=== PATIENT | female | born 1965 | race American Indian/Alaskan Native ===

== ENCOUNTER 2019-07-27 10:51 | Day surgery (SDC) | payer OTHER ==
[2019-07-22 15:50] VITALS: BMI 27.4
[2019-07-27 11:22] VITALS: TEMP 98
[2019-07-27] MEDS ORDERED: SODIUM CHLORIDE 0.9% 500 ML 500 ML IV ONE (11:22)
[2019-07-27] MEDS ORDERED: fentaNYL (PF) 50 MCG/ML 2 ML AMP ONE ×2 (11:36→17:21)
[2019-07-27] MEDS ORDERED: BENZOCAINE SPRAY 1 CAN MUCOUS MEM ONE (11:45)
[2019-07-27] MEDS ORDERED: PROPOFOL 10 MG/ML 20 ML VIAL IV ONE (17:21)
[2019-07-27] MEDS ORDERED: LIDOCAINE 1% INJ 10MG/ML (20 ML MDV) ONE (17:21)
[2019-07-27] MEDS ORDERED: MIDAZOLAM 2 MG/2 ML VIAL ONE (17:21)
[2019-07-27] MEDS ORDERED: SODIUM CHLORIDE 0.9% 1,000 ML IV SCH (17:45)
--- NOTE | 2019-07-27 17:50 | P.PCN ---
Date of Procedure: 07/27/19 Preoperative Diagnosis: Left atrial mass Postoperative Diagnosis: The same Procedure(s) Performed: RACHELLE Description of Procedure: INDICATION: This is a 54-year-old female who was diagnosed to have left atrial mass about 5 years ago and is being followed by Dr. JENNA Hernandez. A RACHELLE examination is requested for further evaluation. Patient and family were explained the risks and benefits of procedure CONSENT: Verbal consent was obtained from the patient PROCEDURE: Patient was brought to the lab in a fasting state. Department of anesthesia provided deep anesthesia with IV propofol. A lubricated Omni probe was introduced in the oropharynx and was introduced into the esophagus and stomach. Multiple views were obtained. Patient tolerated the procedure well. Color and pulse revealed a smoker performed. Saline contrast bubble injection was also performed FINDINGS:. The interatrial septum appeared to be intact without any spontaneous shunt. Injection of the saline contrast bubble, did not reveal any evidence of crossing of the bubbles. There is a sessile mass on the left atrial side of the interatrial septum measuring 1.4 x 1 cm. It has a different texture suggestive of possible mass. The possibility of a myxoma to be constricted. The mitral valve appears be normal without any Sigmund regurgitation. The tricuspid valve appeared to be normal. The aortic valve is normal. Left atrial appendage is free of any clot. Pulmonary venous port Appeared to be normal. The aorta is free of any plaque IMPRESSION: #1 sessile mass attached to the interatrial septum on the left atrial side which has a texture could be consistent with myxoma. Measured about 1.4 x 1 cm. #2. Otherwise normal study PLAN:. Continue monitoring. May get surgical opinion regarding possible removal
[2019-07-27 20:01] VITALS: BP 111/57; PULSE 71; RESP 18
== END 2019-07-27 20:45 | disposition home or self-care (01) ==
LOC: CATHCVL 10:51 → 1SOBS 17:43 → CATHCVL 20:45
PROVIDERS: ATTEND Internal Medicine Cardiovascular Disease
DX: D15.1 Benign neoplasm of heart (principal); G89.4 Chronic pain syndrome; F17.210 Nicotine dependence, cigarettes, uncomplicated; Z79.899 Other long term (current) drug therapy; Z88.6 Allergy status to analgesic agent; Z88.8 Allergy status to other drugs, medicaments and biological substances; Z91.041 Radiographic dye allergy status; Z90.710 Acquired absence of both cervix and uterus; Z96.22 Myringotomy tube(s) status; Z91.040 Latex allergy status
CPT/HCPCS: 93312; 93320; 93325; J2250; J2001; J3010; J2704

== ENCOUNTER 2019-07-29 21:41 | Observation (INO) | payer OTHER ==
[2019-07-29] MEDS ORDERED: SODIUM CHLORIDE 0.9% 1,000 ML IV ONE (21:48)
--- NOTE | 2019-07-29 21:53 | ED ---
Chest Pain HPI - General Chief Complaint: Chest Pain Stated Complaint: Chest pain Time Seen by Provider: 07/29/19 21:48 Source: EMS, RN notes reviewed, old records reviewed Mode of arrival: EMS Limitations: no limitations - History of Present Illness Initial Comments: This is a 54-year-old female the ER for evaluation complex recent medical history including multiple heart attacks per patient. While driving to [place] to the of her and then she drove home. Patient also recent RACHELLE which was abnormal results patient had some sort of mass in her heart. Patient has chest pain left-sided chest pain that is very sharp and stabbing currently. She does have recent travel history but no fever cough or congestion no current shortness of breath pain started earlier today about an hour ago and is been getting progressively worse. She took some Valium prior to arrival secondary to some anxiety that she was having. Otherwise pain does not radiate his neck or back. No swelling patient's Pain with friends and began to have some anxiety as well as chest pain on way into town Complaint: chest pain -: days(s) Onset: during rest Pain Location: left chest Severity: moderate Severity scale (1-10): 7 Quality: sharp Consistency: constant Improves With: nothing Worsens With: nothing Context: other (Recent RACHELLE showing some sort of heart tumor) Anginal Symptoms: dyspnea Other Symptoms: palpitations Treatments Prior to Arrival: none - Related Data Home Medications Medication Instructions Recorded Confirmed Cyclobenzaprine [Flexeril] 10 mg PO QID PRN 07/22/19 08/01/19 Diazepam [Valium] 10 mg PO DAILY PRN 07/22/19 08/01/19 HYDROcodone/APAP 10-325MG [[place] 1 tab PO Q4HR PRN 07/22/19 08/01/19 10-325] Medroxyprogesterone Acetate 150 mg IM Q90D 07/30/19 08/01/19 [Depo-Provera] Allergies Allergy/AdvReac Type Severity Reaction Status Date / Time aspirin Allergy Anaphylaxis Verified 08/01/19 23:07 willis Allergy Anaphylaxis Verified 08/01/19 23:07 willis flavor Allergy Anaphylaxis Verified 08/01/19 23:07 Iodinated Contrast Media Allergy Dyspnea Verified 08/01/19 23:07 antidepressants Allergy "blacked Uncoded 08/01/19 23:05 out" Review of Systems ROS Statement: Those systems with pertinent positive or pertinent negative responses have been documented in the HPI. ROS Other: All systems not noted in ROS Statement are negative. EKG Findings - EKG Comments: EKG Findings:: KG shows sinus rhythm rate of 87, WI 1:30, QRS 74, QTc 450 Past Medical History Additional Past Medical History / Comment(s): "I have a mass on my heart." Occ CP. "Having problems with my stomach." History of Any Multi-Drug Resistant Organisms: None Reported Past Surgical History: Ear Surgery, Hysterectomy Additional Past Surgical History / Comment(s): D&C's Past Anesthesia/Blood Transfusion Reactions: No Reported Reaction Additional Past Anesthesia/Blood Transfusion Reaction / Comment(s): no blood transfusion Past Psychological History: Anxiety, Depression Smoking Status: Former smoker Past Alcohol Use History: Rare Past Drug Use History: None Reported - Past Family History Mother Family Medical History: Cancer Father Family Medical History: No Reported History General Exam Limitations: no limitations General appearance: anxious Head exam: Present: atraumatic, normocephalic, normal inspection Eye exam: Present: normal appearance, PERRL, EOMI. Absent: scleral icterus, conjunctival injection, periorbital swelling ENT exam: Present: normal exam, mucous membranes moist Neck exam: Present: normal inspection. Absent: tenderness, meningismus, lymphadenopathy Respiratory exam: Present: normal lung sounds bilaterally. Absent: respiratory distress, wheezes, rales, rhonchi, stridor Cardiovascular Exam: Present: regular rate, normal rhythm, normal heart sounds. Absent: systolic murmur, diastolic murmur, rubs, gallop, clicks GI/Abdominal exam: Present: soft, normal bowel sounds. Absent: distended, tenderness, guarding, rebound, rigid Extremities exam: Present: normal inspection, full ROM, normal capillary refill. Absent: tenderness, pedal edema, joint swelling, calf tenderness Back exam: Present: normal inspection Neurological exam: Present: alert, oriented X3, CN II-XII intact Psychiatric exam: Present: normal affect, normal mood Skin exam: Present: warm, dry, intact, normal color. 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
[2019-07-29] MEDS ORDERED: SODIUM CHLORIDE 0.9% 1,000 ML IV STA (22:00)
[2019-07-29] MEDS ORDERED: MORPHINE SULFATE 4 MG/ML SYRINGE IV STA (22:00)
[2019-07-29 23:21] LABS: Basophils # (A) 0.1 k/uL (0-0.2); Basophils % (A) 1 %; Eosinophils # (A) 0.2 k/uL (0-0.7); Eosinophils % (A) 2 %; HCT 39.5 % (34.0-46.0); HGB 12.6 gm/dL (11.4-16.0); Lymphocytes # (A) 2.7 k/uL (1.0-4.8); Lymphocytes % (A) 29 %; MCH 28.5 pg (25.0-35.0); MCHC 31.9 g/dL (31.0-37.0); MCV 89.6 fL (80.0-100.0); Mean Platelet Volume 6.7; Monocytes # (A) 0.5 k/uL (0-1.0); Monocytes % (A) 5 %; Neutrophils # (A) 5.8 k/uL (1.3-7.7); Neutrophils % (A) 62 %; Platelet Count 306 k/uL (150-450); RBC 4.41 m/uL (3.80-5.40); RDW 13.9 % (11.5-15.5); WBC 9.3 k/uL (3.8-10.6)
[2019-07-29 23:30] LABS: ALT 26 U/L (9-52); AST 19 U/L (14-36); African American GFR (CKD) >90 (>60 ml/min/1.73 sqM); Alkaline Phosphatase 47 U/L (38-126); Anion Gap 11 mmol/L; Blood Urea Nitrogen 14 mg/dL (7-17); Calcium 9.3 mg/dL (8.4-10.2); Carbon Dioxide 21 mmol/L (22-30); Chloride 110 mmol/L (98-107); Glucose 87 mg/dL (74-99); Non-African American GFR(CKD) 79 (>60 ml/min/1.73 sqM); Potassium 3.8 mmol/L (3.5-5.1); Sodium 142 mmol/L (137-145); Total Bilirubin 0.3 mg/dL (0.2-1.3); Total Protein 6.5 g/dL (6.3-8.2)
[2019-07-29 23:34] LABS: D-Dimer 0.31 mg/L FEU (<0.60); Partial Thromboplastin Time 25.5 sec (22.0-30.0); Prothrombin Time 10.4 sec (9.0-12.0)
[2019-07-30] MEDS ORDERED: methylPREDNISolone SOD SUCCI 125 MG/2 ML VIAL IV STA (00:33)
[2019-07-30] MEDS ORDERED: FAMOTIDINE 20 MG/2 ML VIAL IV STA (00:33)
[2019-07-30] MEDS ORDERED: diphenhydrAMINE 50 MG/ML 1 ML VIAL IVP STA (00:33)
[2019-07-30] MEDS ORDERED: NITROGLYCERIN SL TABS 0.4 MG TAB SUBLINGUAL PRN (00:49)
[2019-07-30] MEDS ORDERED: MORPHINE SULFATE 4 MG/ML SYRINGE IV PRN (00:49)
[2019-07-30] MEDS ORDERED: MORPHINE SULFATE 4 MG/ML SYRINGE IVP PRN (00:49)
[2019-07-30] MEDS ORDERED: ONDANSETRON 4 MG/2 ML VIAL IVP STA (01:07)
--- NOTE | 2019-07-30 01:52 | CT ---
EXAMINATION TYPE: CT angio chest DATE OF EXAM: 07/30/2019 1:26 AM COMPARISON: None HISTORY: chest pain CT DLP: 296 mGycm Automated exposure control for dose reduction was used. CONTRAST: CTA scan of the thorax is performed with IV Contrast, patient injected with 65 mL of Isovue 370, pulm onary embolism protocol. . There are 3-D post processed images. FINDINGS: Heart size is normal. There is no pericardial effusion. There is no mediastinal adenopathy. There are no hilar masses. Thoracic aorta is intact without sign of aneurysm or dissection. There is normal contrast opacification of the pulmonary arteries. There are no filling defects. There is mild subsegmental atelectasis at the posterior lung bases. There is no evidence of a pulmona ry mass. Lungs are clear of consolidation. There is no pleural effusion. There is mild thoracic dextr oscoliosis. There is mild spondylotic changes in the thoracic spine. IMPRESSION: NO EVIDENCE OF PULMONARY EMBOLISM. NEGATIVE EXAM.
[2019-07-30 08:38] VITALS: BP 115/68; PULSE 72; RESP 18; TEMP 98.2
--- NOTE | 2019-07-30 10:04 | P.CRDCN ---
History of Present Illness History of present illness: This is a pleasant 54-year-old female past medical history for left atrial mass suggestive of myxoma and former nicotine dependence. She follows in the office with Dr. Hernandez. She recently established with him after 10 years and underwent evaluation of the myxoma. She had a RACHELLE on July 27 revealing the intra-atrial septum intact, sensory no mass in the left atrial side of the interatrial septum measuring 1.4 x 1 cm suggestive of possible mass possible myxoma, mitral valve normal without any regurgitation, tricuspid valve normal, aortic valve normal, left atrial appendage free of any clot and normal LV function. She presented to the hospital yesterday complaining of significant chest discomfort in the left precordial region with radiation to the left arm, into the left hand and mildly in the right shoulder. Associated with shortness of breath, nausea and she vomited once yesterday after receiving IV contrast for CT. Upon entering the room she is clutching her chest and crying. She states her chest hurts to touch. The pain is reproducible on gentle palpation. She denies associated dizziness, palpitations or diaphoresis currently. She is behaving quite aggressively and swearing at staff. She is quite concerned about her pain going untreated. She did receive IV morphine at 2345, 11 and 0254. Of noted, the patient did lose her 4 weeks ago today and is having a difficult time dealing with it. EKG reveals sinus mechanism, poor R-wave progression and nonspecific ST abnormalities. CT chest negative for pulmonary embolism, no evidence of pulmonary mass, lungs are clear of consolidation and intact thoracic aorta. Laboratory data reviewed, WBC 9.3, hemoglobin 12.6, platelets 306, d-dimer 0.31, sodium 142, potassium 3.8, creatinine 0.85, magnesium 2.0, cardiac enzymes negative 2, proBNP 98. She currently takes no daily cardiac medications. At the time of my exam: CONSTITUTIONAL: Denies fever. Denies chills. EYES: Denies blurred vision. Denies vision changes. Denies eye pain. EARS, NOSE, MOUTH & THROAT: Denies headache. Denies sore throat. Denies ear pain. CARDIOVASCULAR: Complains of chest pain. Denies shortness of breath. Denies orthopnea. Denies PND. Denies palpitations. RESPIRATORY: Denies cough. GASTROINTESTINAL: Denies abdominal pain. Denies diarrhea. Denies constipation. Denies nausea. Denies vomiting. MUSCULOSKELETAL: Denies myalgias. INTEGUMENTARY: Denies pruitis. Denies rash. NEUROLOGIC: Denies numbness. Denies tingling. Denies weakness. PSYCHIATRIC: Denies anxiety. Denies depression. ENDOCRINE: Denies fatigue. Denies weight change. Denies polydipsia. Denies polyurina. GENITOURINARY: Denies burning, hematuria or urgency with micturation. HEMATOLOGIC: Denies history of anemia. Denies bleeding. Blood pressure 115/68 heart rate 72 afebrile maintaining oxygen saturation on room air GENERAL: This is a 54-year-old female in no apparent distress at the time of my examination. Tearful. HEENT: Head is atraumatic, normocephalic. Pupils are equal, round. Sclerae anicteric. Conjunctivae are clear. Mucous membranes of the mouth are moist. Neck is supple. There is no jugular venous distention. No carotid bruit is heard. LUNGS: Clear to auscultation no wheezes, rales or rhonchi. Significant chest wall tenderness is noted on palpation and with deep breathing. HEART: Regular rate and rhythm without murmurs, rubs or gallops. S1 and S2 heard. ABDOMEN: Soft, nontender. Bowel sounds are heard. No organomegaly noted. EXTREMITIES: No evidence of peripheral edema and no calf tenderness noted. VASCULAR: Radial and dorsalis pedis pulses palpated, no evidence of clubbing. NEUROLOGIC: Patient is awake, alert and oriented x3. ASSESSMENT Chest pain, atypical for angina. Pleuritic and reproducible on palpitation. Unlikely to be cardiac etiology. 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 In the process of undergoing outpatient work-up with recommendation to see CT Surgery as an outpatient. History of anxiety and recent loss of a loved one Former nicotine dependence PLAN Pain is atypical to be from a cardiac etiology or myxoma. Pt is tearful and behaving quite aggressively regarding have her "mass removed today" explained the process to her and advised that she continues her outpatient work-up. Follow up with Dr. Hernandez upon discharge and again advise outpatient follow up with CT surgery. Thank you kindly for this consultation. Nurse Practitioner note has been reviewed, I agree with a documented findings and plan of care. Patient was seen and examined. Past Medical History Additional Past Medical History / Comment(s): "I have a mass on my heart." Occ CP. "Having problems with my stomach." History of Any Multi-Drug Resistant Organisms: None Reported Past Surgical History: Ear Surgery, Hysterectomy Additional Past Surgical History / Comment(s): D&C's Past Anesthesia/Blood Transfusion Reactions: No Reported Reaction Additional Past Anesthesia/Blood Transfusion Reaction / Comment(s): no blood transfusion Smoking Status: Former smoker - Past Family History Mother Family Medical History: Cancer Medications and Allergies Home Medications Medication Instructions Recorded Confirmed Type Cyclobenzaprine [Flexeril] 10 mg PO QID PRN 07/22/19 07/29/19 History Diazepam [Valium] 10 mg PO DAILY PRN 07/22/19 07/29/19 History HYDROcodone/APAP 10-325MG [[place] 1 tab PO Q4HR PRN 07/22/19 07/29/19 History 10-325] Medroxyprogesterone Acetate 150 mg IM Q90D 07/30/19 07/30/19 History [Depo-Provera] Allergies Allergy/AdvReac Type Severity Reaction Status Date / Time aspirin Allergy Anaphylaxis Verified 07/30/19 02:40 willis Allergy Anaphylaxis Verified 07/30/19 02:40 willis flavor Allergy Anaphylaxis Verified 07/30/19 02:40 Iodinated Contrast Media Allergy Dyspnea Verified 07/30/19 02:40 antidepressants Allergy "blacked Uncoded 07/30/19 02:40 out" Physical Exam Vitals: Vital Signs Temp Pulse Pulse Resp BP BP Pulse Ox 07/30/19 03:02 20 07/30/19 03:00 97.9 F 69 18 135/81 100 07/30/19 02:18 98.6 F 71 20 121/86 97 07/29/19 21:43 98.9 F 90 18 122/67 98 Intake and Output 07/29/19 07/30/19 07/30/19 22:59 06:59 14:59 Other: # Voids 1 Weight 71.214 kg Results 07/29/19 22:25 07/29/19 22:25 Cardiac Enzymes 07/29/19 07/29/19 07/30/19 Range/Units 22:25 22:25 05:36 AST 19 (14-36) U/L Troponin I <0.012 <0.012 (0.000-0.034) ng/mL Coagulation 07/29/19 Range/Units 22:25 PT 10.4 (9.0-12.0) sec APTT 25.5 (22.0-30.0) sec CBC 07/29/19 Range/Units 22:25 WBC 9.3 (3.8-10.6) k/uL RBC 4.41 (3.80-5.40) m/uL Hgb 12.6 (11.4-16.0) gm/dL Hct 39.5 (34.0-46.0) % Plt Count 306 (150-450) k/uL Comprehensive Metabolic Panel 07/29/19 Range/Units 22:25 Sodium 142 (137-145) mmol/L Potassium 3.8 (3.5-5.1) mmol/L Chloride 110 H (98-107) mmol/L Carbon Dioxide 21 L (22-30) mmol/L BUN 14 (7-17) mg/dL Creatinine 0.85 (0.52-1.04) mg/dL Glucose 87 (74-99) mg/dL Calcium 9.3 (8.4-10.2) mg/dL AST 19 (14-36) U/L ALT 26 (9-52) U/L Alkaline Phosphatase 47 (38-126) U/L Total Protein 6.5 (6.3-8.2) g/dL Albumin 4.0 (3.5-5.0) g/dL Current Medications Generic Name Dose Route Start Last Admin Trade Name Freq PRN Reason Stop Dose Admin Morphine Sulfate 4 mg 07/30/19 00:49 07/30/19 02:54 Morphine Sulfate (Inj) IV 4 mg Q4HR PRN Administration Chest Pain Morphine Sulfate 4 mg 07/30/19 00:49 07/30/19 01:11 Morphine Sulfate (Inj) IVP 4 mg ONCE PRN Administration Pain Nitroglycerin 0.4 mg 07/30/19 00:49 Nitrostat SUBLINGUAL Q5M PRN Chest Pain Intake and Output 07/29/19 07/30/19 07/30/19 22:59 06:59 14:59 Other: # Voids 1 Weight 71.214 kg 07/29/19 22:25 07/29/19 22:25
--- NOTE | 2019-07-30 10:56 | XR ---
EXAMINATION TYPE: XR chest 2V DATE OF EXAM: 07/30/2019 COMPARISON: CTA chest earlier today HISTORY: Pre open cardiac surgery. TECHNIQUE: Frontal and lateral views of the chest are obtained. FINDINGS: Overlying EKG leads are present. There is no focal air space opacity, pleural effusion, or pneumothorax seen. The cardiac silhouette size is within normal limits. The osseous structures are intact. IMPRESSION: No acute process.
[2019-07-30 11:31] LABS: Basophils % (A) 0 %; Eosinophils % (A) 0 %; HCT 44.7 % (34.0-46.0); Lymphocytes # (A) 1.2 k/uL (1.0-4.8); Lymphocytes % (A) 14 %; MCH 28.2 pg (25.0-35.0); MCHC 31.3 g/dL (31.0-37.0); MCV 90.1 fL (80.0-100.0); Mean Platelet Volume 6.7; Monocytes # (A) 0.1 k/uL (0-1.0); Monocytes % (A) 1 %; Neutrophils # (A) 7.2 k/uL (1.3-7.7); Neutrophils % (A) 84 %; Platelet Count 366 k/uL (150-450); RBC 4.95 m/uL (3.80-5.40); WBC 8.5 k/uL (3.8-10.6)
[2019-07-30 11:42] LABS: ALT 34 U/L (9-52); AST 17 U/L (14-36); African American GFR (CKD) >90 (>60 ml/min/1.73 sqM); Albumin 4.5 g/dL (3.5-5.0); Alkaline Phosphatase 53 U/L (38-126); Anion Gap 12 mmol/L; Blood Urea Nitrogen 11 mg/dL (7-17); Carbon Dioxide 19 mmol/L (22-30); Chloride 110 mmol/L (98-107); Cholesterol 198 mg/dL (<200); Glucose 148 mg/dL (74-99); HDL Cholesterol 40 mg/dL (40-60); LDL Cholesterol,Calculated 145 mg/dL (0-99); Non-African American GFR(CKD) >90 (>60 ml/min/1.73 sqM); Potassium 4.1 mmol/L (3.5-5.1); Sodium 141 mmol/L (137-145); Total Bilirubin 0.5 mg/dL (0.2-1.3); Total Protein 7.2 g/dL (6.3-8.2); Triglycerides 64 mg/dL (<150)
[2019-07-30 12:23] LABS: Appearance,Urine Clear (Clear); Bilirubin,Urine Negative (Negative); Blood,Urine Small (Negative); Color,Urine Yellow; Glucose,Urine (UA) Negative (Negative); Ketones,Urine Negative (Negative); Leukocyte Esterase,Urine Negative (Negative); Mucus,Urine Rare /hpf; Nitrite,Urine Negative (Negative); Protein,Urine Trace (Negative); RBC,Urine 8 /hpf (0-5); Specific Gravity,Urine 1.033 (1.001-1.035); Squamous Epithelial Cell,Urine 1 /hpf (0-4); Urobilinogen,Urine <2.0 mg/dL (<2.0)
--- NOTE | 2019-07-30 13:18 | P.GSCN ---
History of Present Illness Consult date: 07/30/19 Reason for Consult: Left atrial septal mass measuring 1.4 x 1.0 cm suggestive of possible myxoma. Requesting physician: Moi Hernandez History of present illness: This is a 54-year-old female patient who is followed by Dr. Tommy Vo on an outpatient basis. 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 The patient also reports that she was diagnosed with a myocardial infarction 6 weeks ago in [place] with no records available. The patient also experienced a recent loss of her 16 weeks ago and reports today is the 16 week anniversary of him passing. She states that she started developing substernal chest pain last evening while camping with family members. The chest pain started at rest and it radiated to her left arm with numbness and tingling, the chest pain was also associated with shortness of breath, nausea and some dizziness. Subsequently a family member called EMS. She denies any recent fevers, chills, presyncope, syncope, or palpitations. The patient also has a history of following with Dr. JENNA Hernandez from [facility], although she recently reestablished with him after not seeing him for around 10 years. Due to the patient's history of left atrial myxoma a 2-D echocardiogram was completed at Dr. Hernandez's office on 06/24/2019 which demonstrated a normal left ventricular size and function with an ejection fraction of 55%, intra-atrial septum with a lipomatous change or myxoma. She was recommended to undergo a transesophageal echocardiogram which was completed on 07/27/2019 and demonstrated a sessile mass attached to the intra-atrial septum on the left atrial side which has a texture which could be consistent with a myxoma and measured about 1.4 x 1 cm. On presentation to the emergency department a 12-lead EKG was completed which revealed normal sinus rhythm with a heart rate of 87, with poor R-wave progression and nonspecific ST-T abnormalities. For further evaluation a CTA of the chest was completed which was negative for pulmonary embolism and showed no evidence of pulmonary mass. Her laboratory results showed a WBC count of 9.3, hemoglobin 12.6, hematocrit 39.5, platelets 306, INR 1.0, BUN 14, creatinine 0.85, blood glucose 87, proBNP 98 and her serial troponins were negative. Currently she is complaining of continued pain, is quite anxious, tearing and agitated. She is also swearing and insisting she have surgery today to remove this mass in her heart. Subsequently due to the patient's history of left atrial septal mass a consult was placed to Dr. Felipa Rodriguez for further evaluation and treatment recommendations. Review of Systems 14 point review of systems was completed and was negative except as mentioned in the HPI. Past Medical History Past Medical History: Chest Pain / Angina Additional Past Medical History / Comment(s): "I have a mass on my heart." "Having problems with my stomach." History of Any Multi-Drug Resistant Organisms: None Reported Past Surgical History: Ear Surgery, Hysterectomy, Tubal Ligation Additional Past Surgical History / Comment(s): D&C's Past Anesthesia/Blood Transfusion Reactions: No Reported Reaction Additional Past Anesthesia/Blood Transfusion Reaction / Comm: no blood transfusion Past Psychological History: Anxiety Smoking Status: Former smoker (Quit smoking in the ) Past Alcohol Use History: Rare Past Drug Use History: None Reported - Past Family History Mother Family Medical History: Cancer Father Family Medical History: No Reported History Medications and Allergies Home Medications Medication Instructions Recorded Confirmed Type Cyclobenzaprine [Flexeril] 10 mg PO QID PRN 07/22/19 07/29/19 History Diazepam [Valium] 10 mg PO DAILY PRN 07/22/19 07/29/19 History HYDROcodone/APAP 10-325MG [[place] 1 tab PO Q4HR PRN 07/22/19 07/29/19 History 10-325] Medroxyprogesterone Acetate 150 mg IM Q90D 07/30/19 07/30/19 History [Depo-Provera] Allergies Allergy/AdvReac Type Severity Reaction Status Date / Time aspirin Allergy Anaphylaxis Verified 07/30/19 02:40 willis Allergy Anaphylaxis Verified 07/30/19 02:40 willis flavor Allergy Anaphylaxis Verified 07/30/19 02:40 Iodinated Contrast Media Allergy Dyspnea Verified 07/30/19 02:40 antidepressants Allergy "blacked Uncoded 07/30/19 02:40 out" Surgical - Exam Vital Signs Temp Pulse Resp BP Pulse Ox 98.9 F 90 18 122/67 98 07/29/19 21:43 07/29/19 21:43 07/29/19 21:43 07/29/19 21:43 07/29/19 21:43 - General well developed, well nourished, no distress, moderate pain (To her left chest) - Eyes PERRL, normal ocular movement - ENT normal pinna, normal nares, normal mucosa, no hearing loss, no congestion, poor residential - Neck Neck is supple, no lymphadenopathy. no masses, no bruits, trachea midline, no venous distension - Respiratory Lung sounds are essentially clear throughout. No wheezes, rhonchi or crackles appreciated. Respirations are symmetrical and nonlabored. - Cardiovascular Regular rhythm and rate. S1 and S2 present, negative for S3, gallop or murmur. No edema present. Peripheral pulses palpable. - Abdomen Abdomen is soft, nontender and nondistended. Active bowel sounds present all 4 abdominal quadrants. No organomegaly. No guarding or rigidity. - Genitourinary Deferred - Rectum Deferred - Integumentary no rash, no growths, no abnormal pigmentation - Neurologic normal coordination, normal sensation - Musculoskeletal normal gait, normal posture - Psychiatric Anxious and agitated. oriented to time, oriented to person, oriented to place, speech is normal, memory intact Results - Labs 07/30/19 11:05 07/30/19 11:05 Abnormal Lab Results - Last 24 Hours (Table) 07/29/19 Range/Units 22:25 Chloride 110 H (98-107) mmol/L Carbon Dioxide 21 L (22-30) mmol/L Diabetes panel 07/29/19 Range/Units 22:25 Sodium 142 (137-145) mmol/L Potassium 3.8 (3.5-5.1) mmol/L Chloride 110 H (98-107) mmol/L Carbon Dioxide 21 L (22-30) mmol/L BUN 14 (7-17) mg/dL Creatinine 0.85 (0.52-1.04) mg/dL Glucose 87 (74-99) mg/dL Calcium 9.3 (8.4-10.2) mg/dL AST 19 (14-36) U/L ALT 26 (9-52) U/L Alkaline Phosphatase 47 (38-126) U/L Total Protein 6.5 (6.3-8.2) g/dL Albumin 4.0 (3.5-5.0) g/dL Calcium panel 07/29/19 Range/Units 22:25 Calcium 9.3 (8.4-10.2) mg/dL Albumin 4.0 (3.5-5.0) g/dL Pituitary panel 07/29/19 Range/Units 22:25 Sodium 142 (137-145) mmol/L Potassium 3.8 (3.5-5.1) mmol/L Chloride 110 H (98-107) mmol/L Carbon Dioxide 21 L (22-30) mmol/L BUN 14 (7-17) mg/dL Creatinine 0.85 (0.52-1.04) mg/dL Glucose 87 (74-99) mg/dL Calcium 9.3 (8.4-10.2) mg/dL Adrenal panel 07/29/19 Range/Units 22:25 Sodium 142 (137-145) mmol/L Potassium 3.8 (3.5-5.1) mmol/L Chloride 110 H (98-107) mmol/L Carbon Dioxide 21 L (22-30) mmol/L BUN 14 (7-17) mg/dL Creatinine 0.85 (0.52-1.04) mg/dL Glucose 87 (74-99) mg/dL Calcium 9.3 (8.4-10.2) mg/dL Total Bilirubin 0.3 (0.2-1.3) mg/dL AST 19 (14-36) U/L ALT 26 (9-52) U/L Alkaline Phosphatase 47 (38-126) U/L Total Protein 6.5 (6.3-8.2) g/dL Albumin 4.0 (3.5-5.0) g/dL - Imaging Chest x-ray: image reviewed CT scan - chest: report reviewed, image reviewed EKG: image reviewed Assessment and Plan Assessment: 1. Chest pain, atypical for angina 2. History of left atrial mass measuring 1.4 x 1 cm on transesophageal echocardiogram 3. History of anxiety 4. Remote history of nicotine dependence 5. Chronic pain syndrome 6. History of migraine headaches 7. History of back spasms Plan: The patient was seen and examined. Her chart and diagnostics were reviewed. The case was discussed with Dr. Felipa Rodriguez from cardiothoracic surgery. Her pain is atypical from a cardiac etiology or myxoma. If the patient was to be considered a candidate for open heart surgery for her left atrial mass she will likely need a cardiac catheterization preoperatively. This has been discussed with the patient and Gillian Batres nurse practitioner for cardiology. Preoperat amairani testing has been initiated. Optimize the patient with medical management, the patient has a contraindication to aspirin as she has an anaphylactic reaction. Optimize with medical management. Cardiology recommendations per Dr. JENNA Hernandez. Medical and comorbidities management per primary care service. More recommendations to follow once the patient's preoperative testing has been obtained and her cardiac catheterization results have been obtained. Once the patient has had a cardiac catheterization she can follow-up with Dr. Rodriguez in the office on an outpatient basis Thank you Dr. Hernandez for this consult and we will look for to work through in the care of your patient. Time with Patient: Greater than 30
--- NOTE | 2019-07-30 13:44 | US ---
EXAMINATION TYPE: US carotid duplex BILAT DATE OF EXAM: 07/30/2019 COMPARISON: NONE CLINICAL HISTORY: Pre-Op Cardiac Surgery,Ankle Brachial Index (PADMINI) . EXAM MEASUREMENTS: RIGHT: Peak Systolic Velocity (PSV) cm/sec ----- Right CCA: 78.4 ----- Right ICA: 72.3 ----- Right ECA: 80.9 ICA/CCA ratio: 0.9 RIGHT: End Diastole cm/sec ----- Right CCA: 15.0 ----- Right ICA: 14.1 ----- Right ECA: 12.8 LEFT: Peak Systolic Velocity (PSV) cm/sec ----- Left CCA: 80.1 ----- Left ICA: 64.8 ----- Left ECA: 91.2 ICA/CCA ratio: 0.8 LEFT: End Diastole cm/sec ----- Left CCA: 18.0 ----- Left ICA: 12.9 ----- Left ECA: 12.1 VERTEBRALS (direction of flow): Right Vertebral: Antegrade Left Vertebral: Antegrade Rhythm: Normal no significant velocity elevations. IMPRESSION: Mild degree of grayscale atheromatous plaquing with no sonographically evident hemodyn amically significant stenosis within either visualized carotid arterial system. Criteria for Assigning % of Stenosis / Diameter reduction (Estimation based on the indirect measurements of the internal carotid artery velocities (ICA PSV). 1. Normal (no stenosis)=ICA PSV < 125 cm/s: ratio < 2.0: ICA EDV<40 cm/s. 2. Less than 50% stenosis=ICA PSV < 125 cm/s: ratio < 2.0: ICA EDV<40 cm/s. 3. 50 to 69% stenosis=ICA PSV of 125 to 230 cm/s: ration 2.0 ? 4.0: ICA EDV 40-100 cm/s. 4. Greater than 70% stenosis to near occlusion= ICA PSV > 230 cm/s: ratio > 4.0: ICA EDV > 100 cm/s. 5. Near occlusion= ICA PSV velocities may be low or undetectable: variable ratio and ICA EDV. 6. Total occlusion=unable to detect flow.
[2019-07-30 16:47] LABS: Hepatitis A Antibody IgM Non-Reactive (Non-Reactive); Hepatitis B Core IgM Non-Reactive (Non-Reactive); Hepatitis B Surface Antigen Non-Reactive (Non-Reactive); Hepatitis C IgG Antibody Non-Reactive (Non-Reactive)
[2019-07-30 18:19] LABS: Hemoglobin A1C 5.3 % (4.0-6.0)
--- NOTE | 2019-08-04 11:05 | P.VSCSTY ---
Greater Saphenous Vein Mapping This is bilateral lower extremity greater saphenous vein mapping. Date of service: 07/30/2019 Vein quality and ultrasound appearance: No endoluminal thrombus or wall changes are seen.. Vein size groin right : 6.5 x 4.4 groin left: 5.8 x 5.3 High thigh right: 4.3 x 3.3 high thigh left: 4.2 x 3.8 Mid thigh right: 2.1 x 2.0 mid thigh left: 4.0 x 2.6 Above-knee right: 3.1 x 2.2 above- knee left: 2.8 x 2.8 Below knee right: 2.9 x 2.3 below-knee left: 1.7 x 1.9 Mid calf right: 1.5 x 1.5 mid calf left: 2.0 x 1.4 Ankle right: 1.2 x 1.0 ankle left: 1.3 x 1.1. Impression: There appears to be usable greater saphenous vein in both eyes, especially the left [id number]. Both sides below the knee are bit small for use as conduit..
--- NOTE | 2019-08-05 21:15 | P.HPIM ---
History of Present Illness H&P Date: 07/30/19 Chief Complaint: Chest pain History of present complaint: This is a 54-year-old patient who follows with Dr. Goetz. This is a patient has a history of left atrial mass suggestive of myxoma. She follows with Dr. JENNA Hernandez the pipe straightener. She followed up for 10 years and T July 27 found her antral antral septum to be intact. There was some suggestion of the myxoma. Telemetry function reported to be normal. Patient presents 1 day history of sharp pain in the left infraclavicular area and also left arm with some numbness and tingling. Presentation was intermittent and worse with bowel movement. It was also tender to touch below the left clavicle. Patient has recently lost her . Days ago and very sensitive about things around her. She was admitted to rule out a cardiac cause. Review of systems: GEN.: None EYES: None HEENT: None NECK: None RESPIRATORY: None CARDIOVASCULAR: As above GASTROINTESTINAL: None GENITOURINARY: None MUSCULOSKELETAL: As above LYMPHATICS: None HEMATOLOGICAL: None PSYCHIATRY: Anxious NEUROLOGICAL: None Social history: Lives alone. Was a homemaker. No smoking or alcohol. Family history: Cancer Physical examination: VITAL SIGNS: 98.9, 90, 18, 122/67, 98% room air GENERAL: BMI 26.9, sitting up slightly anxious. EYES: Pupils equal. Conjunctiva normal. HEENT: External appearance of nose and ears normal, oral cavity grossly normal. NECK: JVD not raised; masses not palpable. HEART: First and second heart sounds are normal; no edema. LUNGS: Respiratory rate normal; clear to auscultation. ABDOMEN: Soft, nontender, liver spleen not palpable, no masses palpable. PSYCH: Alert and oriented x3; mood and affect normal. NEUROLOGICAL: Cranial nerves grossly intact; no facial asymmetry, power and sensation grossly intact. LYMPHATICS: No lymph nodes palpable in the axilla and neck MUSCULAR schedule: Slight tenderness below the left clavicle. Saw the patient is reproducible INVESTIGATIONS, reviewed in the clinical context: White count 9.3 hemoglobin 12.6 potassium 3.8 creatinine 0.85 Troponin I 2 negative TSH 0.397 free T4 1 0.0 EKG tracing personally reviewed by me-sinus rhythm, poor R-wave progression Chest x-ray film personally reviewed by me-hyperinflated lung ortiz Assessment: -Left anterior chest wall pain reproducible, possibly musculoskeletal -Left atrial mass likely myxoma for further outpatient workup by cardiothoracic surgery -Anxiety with bereavement from recent loss of her Plan: Cardiology was consulted. They did consult cardio thoracic surgery. Some preop workup a bit also. Patient can expedite surgery. Patient was reassured.- Past Medical History Additional Past Medical History / Comment(s): "I have a mass on my heart." Occ CP. "Having problems with my stomach." History of Any Multi-Drug Resistant Organisms: None Reported Past Surgical History: Ear Surgery, Hysterectomy Additional Past Surgical History / Comment(s): D&C's Past Anesthesia/Blood Transfusion Reactions: No Reported Reaction Additional Past Anesthesia/Blood Transfusion Reaction / Comment(s): no blood transfusion Smoking Status: Former smoker - Past Family History Mother Family Medical History: Cancer Father Family Medical History: No Reported History Medications and Allergies Home Medications Medication Instructions Recorded Confirmed Type Cyclobenzaprine [Flexeril] 10 mg PO QID PRN 07/22/19 08/01/19 History Diazepam [Valium] 10 mg PO DAILY PRN 07/22/19 08/01/19 History HYDROcodone/APAP 10-325MG [[place] 1 tab PO Q4HR PRN 07/22/19 08/01/19 History 10-325] Medroxyprogesterone Acetate 150 mg IM Q90D 07/30/19 08/01/19 History [Depo-Provera] Allergies Allergy/AdvReac Type Severity Reaction Status Date / Time aspirin Allergy Anaphylaxis Verified 08/01/19 23:07 willis Allergy Anaphylaxis Verified 08/01/19 23:07 willis flavor Allergy Anaphylaxis Verified 08/01/19 23:07 Iodinated Contrast Media Allergy Dyspnea Verified 08/01/19 23:07 antidepressants Allergy "blacked Uncoded 08/01/19 23:05 out" Physical Exam Vitals: Vital Signs Temp Pulse Pulse Resp BP BP Pulse Ox 07/30/19 08:00 98.2 F 72 18 115/68 98 07/30/19 03:02 20 07/30/19 03:00 97.9 F 69 18 135/81 100 07/30/19 02:18 98.6 F 71 20 121/86 97 07/29/19 21:43 98.9 F 90 18 122/67 98 Intake and Output 07/29/19 07/30/19 07/30/19 22:59 06:59 14:59 Other: # Voids 1 Weight 71.214 kg Results CBC & Chem 7: 07/30/19 11:05 07/30/19 11:05 Labs: Abnormal Lab Results - Last 24 Hours (Table) 07/29/19 07/30/19 Range/Units 22:25 11:05 Chloride 110 H 110 H (98-107) mmol/L Carbon Dioxide 21 L 19 L (22-30) mmol/L Glucose 148 H (74-99) mg/dL LDL Cholesterol, Calc 145 H (0-99) mg/dL TSH 0.397 L (0.465-4.680) mIU/L Thrombosis Risk Factor Assmnt - Choose All That Apply Each Factor Represents 1 point: Age 41-60 years, Obesity (BMI >25) Thrombosis Risk Factor Assessment Total Risk Factor Score: 2 Thrombosis Risk Factor Assessment Level: Low Risk
--- NOTE | 2019-08-05 21:18 | P.DS ---
Providers Date of admission: 07/30/19 00:49 Expected date of discharge: 08/05/19 Attending physician: Delvis Bentley Consults: 07/30/19 00:49 Consult Physician Urgent Consulting Provider: Amrita Tyler Consult Reason/Comments: cp Do you want consulting provider notified?: Yes 07/30/19 08:49 Consult Physician Routine Consulting Provider: Felipa Rodriguez Consult Reason/Comments: myxoma Do you want consulting provider notified?: Yes Primary care physician: Tommy Vo [facility] Course: Chief Complaint: Chest pain Hospital course: This is a 54-year-old patient who follows with Dr. Goetz. This is a patient has a history of left atrial mass suggestive of myxoma. She follows with Dr. JENNA Hernandez the functional architect. She followed up for 10 years and T July 27 found her antral antral septum to be intact. There was some suggestion of the myxoma. Telemetry function reported to be normal. Patient presents 1 day history of sharp pain in the left infraclavicular area and also left arm with some numbness and tingling. Presentation was intermittent and worse with bowel movement. It was also tender to touch below the left clavicle. Patient has recently lost her . Days ago and very sensitive about things around her. She was admitted to rule out a cardiac cause. Patient is felt to musculoskeletal pain. Patient seen by Dr. Rodriguez from cardiothoracic surgery so workup could be expedited for the atrial mass. Consultation: Dr. Gaxiola from cardiology Dr. Rodriguez from cardiothoracic surgery Physical examination: VITAL SIGNS: 98.2, 72, 18, 11 5/68, 98% room air GENERAL: Sitting up, anxious EYES: Pupils equal. Conjunctiva normal. HEENT: External appearance of nose and ears normal, oral cavity grossly normal. NECK: JVD not raised; masses not palpable. HEART: First and second heart sounds are normal; no edema. LUNGS: Respiratory rate normal; clear to auscultation. ABDOMEN: Soft, nontender, liver spleen not palpable, no masses palpable. PSYCH: Alert and oriented x3; mood and affect normal. MUSCULAR schedule: Slight tenderness below the left clavicle. 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 for further outpatient workup by cardiothoracic surgery -Anxiety with bereavement from recent loss of her Disposition: Home Patient Condition at Discharge: Undetermined Plan - Discharge Summary New Discharge Prescriptions: Continue Cyclobenzaprine [Flexeril] 10 mg PO QID PRN PRN Reason: back spasms HYDROcodone/APAP 10-325MG [Crockett 10-325] 1 tab PO Q4HR PRN PRN Reason: Pain Diazepam [Valium] 10 mg PO DAILY PRN PRN Reason: Anxiety Medroxyprogesterone Acetate [Depo-Provera] 150 mg IM Q90D Discharge Medication List Cyclobenzaprine [Flexeril] 10 mg PO QID PRN 07/22/19 [History] Diazepam [Valium] 10 mg PO DAILY PRN 07/22/19 [History] HYDROcodone/APAP 10-325MG [Crockett 10-325] 1 tab PO Q4HR PRN 07/22/19 [History] Medroxyprogesterone Acetate [Depo-Provera] 150 mg IM Q90D 07/30/19 [History] Follow up Appointment(s)/Referral(s): Moi Hernandez MD [STAFF PHYSICIAN] - 08/05/19 10:45 am Tommy Vo MD [Primary Care Provider] - 1-2 days Felipa Rodriguez MD [STAFF PHYSICIAN] - 08/13/19 11:00 am
== END 2019-07-30 12:50 ==
LOC: EC 21:41 → 1SOBS 07-30 00:49
PROVIDERS: ADMIT Hospitalist; ATTEND Hospitalist
DX: R07.89 Other chest pain (principal); R93.1 Abnormal findings on diagnostic imaging of heart and coronary circulation; G89.4 Chronic pain syndrome; F41.9 Anxiety disorder, unspecified; F41.0 Panic disorder [episodic paroxysmal anxiety]; G43.909 Migraine, unspecified, not intractable, without status migrainosus; R20.0 Anesthesia of skin; R20.2 Paresthesia of skin; Z63.4 Disappearance and death of family member; E66.9 Obesity, unspecified; Z68.26 Body mass index [BMI] 26.0-26.9, adult; R11.2 Nausea with vomiting, unspecified; R06.02 Shortness of breath; I25.2 Old myocardial infarction; R00.2 Palpitations; Z79.891 Long term (current) use of opiate analgesic; Z79.899 Other long term (current) drug therapy; Z88.6 Allergy status to analgesic agent; Z91.041 Radiographic dye allergy status; Z88.8 Allergy status to other drugs, medicaments and biological substances; Z91.018 Allergy to other foods; Z87.891 Personal history of nicotine dependence; Z80.9 Family history of malignant neoplasm, unspecified
CPT/HCPCS: 93005 ×2; 96376 ×2; 96361; 96374; 96375; 99285; 36415; 85379; 84439; 83880; 80061; 80053 ×2; 80074; 84443; 83690; 83735 ×2; 84484 ×2; 85025 ×2; 85610; 85730; 81001; 87070; 83036; 71046; 93970; 93880; 71275; G0378; J2270 ×2; J1200; J2930; J2405; Q9967

== ENCOUNTER 2019-08-01 22:48 | Emergency (ER) | payer OTHER ==
--- NOTE | 2019-08-01 23:30 | XR ---
EXAMINATION TYPE: XR chest 2V DATE OF EXAM: 08/01/2019 COMPARISON: 07/30/2019 HISTORY: Chest pain TECHNIQUE: Frontal and lateral views of the chest are obtained. FINDINGS: Heart and mediastinum are normal. Lungs are clear of consolidation. There are no hilar mas ses. Costophrenic angles are clear. There are chest leads. Bony thorax is intact. IMPRESSION: No active cardiopulmonary disease. No change.
[2019-08-01 23:44] LABS: Basophils # (A) 0.1 k/uL (0-0.2); Basophils % (A) 1 %; Eosinophils # (A) 0.2 k/uL (0-0.7); Eosinophils % (A) 2 %; HCT 44.1 % (34.0-46.0); HGB 14.4 gm/dL (11.4-16.0); Lymphocytes # (A) 3.8 k/uL (1.0-4.8); Lymphocytes % (A) 32 %; MCH 29.4 pg (25.0-35.0); MCHC 32.6 g/dL (31.0-37.0); MCV 90.1 fL (80.0-100.0); Mean Platelet Volume 6.6; Monocytes # (A) 0.7 k/uL (0-1.0); Monocytes % (A) 6 %; Neutrophils % (A) 59 %; Platelet Count 308 k/uL (150-450); RDW 14.1 % (11.5-15.5); WBC 11.8 k/uL (3.8-10.6)
[2019-08-01 23:53] LABS: Prothrombin Time 10.3 sec (9.0-12.0)
[2019-08-02] LABS: ALT 35 U/L (9-52); AST 23 U/L (14-36); African American GFR (CKD) >90 (>60 ml/min/1.73 sqM); Albumin 4.3 g/dL (3.5-5.0); Alkaline Phosphatase 49 U/L (38-126); Anion Gap 12 mmol/L; Blood Urea Nitrogen 10 mg/dL (7-17); Calcium 9.4 mg/dL (8.4-10.2); Carbon Dioxide 22 mmol/L (22-30); Chloride 110 mmol/L (98-107); Glucose 104 mg/dL (74-99); Magnesium 2.4 mg/dL (1.6-2.3); Potassium 3.9 mmol/L (3.5-5.1); Sodium 144 mmol/L (137-145); Total Bilirubin 0.5 mg/dL (0.2-1.3)
--- NOTE | 2019-08-02 00:50 | ED ---
Chest Pain HPI - General Chief Complaint: Chest Pain Stated Complaint: chest pain Time Seen by Provider: 08/01/19 22:54 Source: patient, EMS, RN notes reviewed, old records reviewed Mode of arrival: EMS Limitations: no limitations - History of Present Illness Initial Comments: Monika is a 54-year-old female with past medical history is documented below, most significant for a left atrial mass concerning for atrial myxoma for which the patient is currently undergoing evaluation for operative clearance. Patient was seen and evaluated 2 days ago, she was evaluated by cardiology and cardiothoracic surgery plan was to follow-up with cardiology office this week to schedule stress test and cardiac catheterization. Patient returns the emergency department today with complaints of persistent chest pain. Patient reports she's had this pain for a number of days it didn't get any better while she was in the hospital they discharged her home continuing to have chest pain which prompted her to come back to the emergency department. Patient reports the pain hasn't changed, it is constant and is worse with deep breaths. Patient denies any fevers chills nausea or vomiting. Patient does report that she's having a headache, and that she suffers from chronic migraines. Patient states that she's been taking her oral narcotic pain medication with no improvement in her headaches or chest pain. Patient does admit that she took Valium prior to coming to the emergency department. - Related Data Home Medications Medication Instructions Recorded Confirmed Cyclobenzaprine [Flexeril] 10 mg PO QID PRN 07/22/19 08/01/19 Diazepam [Valium] 10 mg PO DAILY PRN 07/22/19 08/01/19 HYDROcodone/APAP 10-325MG [[place] 1 tab PO Q4HR PRN 07/22/19 08/01/19 10-325] Medroxyprogesterone Acetate 150 mg IM Q90D 07/30/19 08/01/19 [Depo-Provera] Allergies Allergy/AdvReac Type Severity Reaction Status Date / Time aspirin Allergy Anaphylaxis Verified 08/01/19 23:07 willis Allergy Anaphylaxis Verified 08/01/19 23:07 willis flavor Allergy Anaphylaxis Verified 08/01/19 23:07 Iodinated Contrast Media Allergy Dyspnea Verified 08/01/19 23:07 antidepressants Allergy "blacked Uncoded 08/01/19 23:05 out" Review of Systems ROS Statement: Those systems with pertinent positive or pertinent negative responses have been documented in the HPI. ROS Other: All systems not noted in ROS Statement are negative. EKG Findings - EKG Comments: EKG Findings:: EKG obtained due to complaint of chest pain, EKG obtained at 2251, rate is 88 rhythm is sinus there is normal axis, there are normal intervals, CT 124, QRS 72, QTc is 440 there are no acute ST elevations or depressions there is no evidence of acute ischemia or infarction. Past Medical History Past Medical History: Chest Pain / Angina Additional Past Medical History / Comment(s): "mass on the heart" History of Any Multi-Drug Resistant Organisms: None Reported Past Surgical History: Ear Surgery, Hysterectomy, Tubal Ligation Additional Past Surgical History / Comment(s): D&C's Past Anesthesia/Blood Transfusion Reactions: No Reported Reaction Additional Past Anesthesia/Blood Transfusion Reaction / Comment(s): no blood transfusion Past Psychological History: Anxiety Smoking Status: Former smoker Past Alcohol Use History: Occasional Past Drug Use History: None Reported - Past Family History Mother Family Medical History: Cancer Father Family Medical History: No Reported History General Exam - General Exam Comments Initial Comments: Physical Exam GENERAL: Patient is well-developed and well-nourished. Patient is nontoxic and well-hydrated and is in no distress. HENT: Normocephalic, Atraumatic. EYES: PERRL, EOMI PULMONARY: Unlabored respirations. No audible rales rhonchi or wheezing was noted. CARDIOVASCULAR: There is a regular rate and rhythm without any murmurs gallops or rubs. Chest wall tenderness, patient screaming prior to stethoscope touching her due to pain ABDOMEN: Soft and nontender with normal bowel sounds. SKIN: Skin is clear with no lesions or rashes and otherwise unremarkable. : Deferred NEUROLOGIC: Patient is alert and oriented x3. Moving all extremities spontaneously MUSCULOSKELETAL: Normal extremities with adequate strength and full range of motion. No lower extremity swelling or edema. No calf tenderness. PSYCHIATRIC: Aggressive, agitated, cursing at staff Limitations: no limitations Course Vital Signs 08/01/19 08/01/19 08/02/19 23:00 23:11 00:05 Temperature 99.1 F Pulse Rate 87 Pulse Rate [ 78 Cutter Tender ] Respiratory 16 16 Rate Blood Pressure 138/80 O2 Sat by Pulse 98 Oximetry 08/02/19 08/02/19 00:57 02:01 Temperature 98.3 F Pulse Rate 76 67 Pulse Rate [ Cutter Tender ] Respiratory 11 L 17 Rate Blood Pressure 131/84 120/85 O2 Sat by Pulse 100 99 Oximetry Chest Pain [facility] - [facility]DM The patient was seen and evaluated, history was obtained from the patient as well as medical record sent patient was admitted 2 days prior for chest pain, had negative troponins was evaluated by cardiology as well as cardiothoracic surgery with plan for outpatient preoperative clearance for surgery for removal of a clear atrial myxoma. At this time it was felt the patient's chest pain is likely noncardiac as it was very reproducible. Upon evaluation patient screaming in pain when I attempted to place the stethoscope on her chest stating that it hurt, patient states that the pain is been present for at least 5 days now and that her oral narcotics are not helping the pain. Patient received aspirin prior to arrival. On initial physical exam pain does not seem cardiac in nature. Patient is very anxious tearful frustrated that she has not had her preoperative clearance as of yet. Eager to have her cardiac tumor removed. I attempted to reevaluate the patient multiple times over the next 2 hours, patient was found to be sleeping comfortably throughout her emergency department stay. Labs resulted with no significant abnormalities. Given that the patient has recently been admitted for these complaints has had chest pain is been persistent for 5 days has a normal EKG negative troponins at this time I do not feel the patient's chest pain is due to acute coronary syndrome I do not feel she requires additional troponins at this time. Given the patient has been sleeping after taking Valium I do not feel she would benefit from additional narcotic pain medication despite her report. Requests. I advised the patient that she will have to treat her pain with Tylenol, her oral narcotics and a portable care. Disposition Clinical Impression: Atypical chest pain Disposition: HOME SELF-CARE Condition: Stable Instructions (If sedation given, give patient instructions): Chest Pain (ED), Costochondritis (ED) Additional Instructions: Follow-up in Dr. Hernandez's office this week to discuss scheduling a stress test and cardiac catheterization for preoperative clearance for cardiothoracic surger y. Is patient prescribed a controlled substance at d/c from ED?: No Referrals: Tommy Vo MD [Primary Care Provider] - 1-2 days
[2019-08-02 02:03] VITALS: BP 120/85; PULSE 67; RESP 17; TEMP 98.3
== END 2019-08-02 02:07 | disposition home or self-care (01) ==
LOC: EC 22:48
DX: R07.89 Other chest pain (principal); R51 Headache; F41.9 Anxiety disorder, unspecified; Z79.899 Other long term (current) drug therapy; Z88.6 Allergy status to analgesic agent; Z91.041 Radiographic dye allergy status; Z88.8 Allergy status to other drugs, medicaments and biological substances; Z91.018 Allergy to other foods; Z87.891 Personal history of nicotine dependence
CPT/HCPCS: 36415; 71046; 80053; 83735; 83880; 84484; 85025; 85610; 85730; 93005; 99285

== ENCOUNTER → 2020-11-09 | Outpatient (CLI) | payer OTHER ==
--- NOTE | 2020-11-10 07:31 | US ---
EXAMINATION TYPE: US kidneys/renal and bladder DATE OF EXAM: 11/09/2020 COMPARISON: NONE CLINICAL HISTORY: N28.1 renal cyst. Lower back pain EXAM MEASUREMENTS: Right Kidney: 9.7 x 4.6 x 4.4 cm Left Kidney: 10.1 x 4.1 x 3.8 cm Right Kidney: 1.4 x 1.6 x 1.6cm anechoic area sup/mid pole, 1.5 x 1.7 x 1.8cm anechoic area medial/mi d pole Left Kidney: no hydronephrosis or masses seen Bladder: wnl Bilateral Jets seen: yes There is no evidence for hydronephrosis at this point in time. No nephrolithiasis is seen. No solid masses are identified. The urinary bladder is anechoic. Bilateral ureteral jets are seen. IMPRESSION: Renal cystic changes noted right kidney.
== END | disposition home or self-care (01) ==
LOC: RADUSWWP 15:41
PROVIDERS: ATTEND Urology
DX: N28.1 Cyst of kidney, acquired (principal); Z88.6 Allergy status to analgesic agent
CPT/HCPCS: 76770

== ENCOUNTER → 2023-04-21 | Outpatient (CLI) | payer MEDICARE, OTHER ==
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
== END ==
LOC: EDSTATUS 19:20 → 3 N SLEEP 19:34
PROVIDERS: ATTEND Internal Medicine Critical Care Medicine
DX: G47.10 Hypersomnia, unspecified (principal); F32.A Depression, unspecified; F41.9 Anxiety disorder, unspecified; R41.3 Other amnesia; R06.83 Snoring; G89.29 Other chronic pain; Z79.891 Long term (current) use of opiate analgesic; Z87.828 Personal history of other (healed) physical injury and trauma; Z88.1 Allergy status to other antibiotic agents; Z91.018 Allergy to other foods; Z91.041 Radiographic dye allergy status; Z88.8 Allergy status to other drugs, medicaments and biological substances; Z87.891 Personal history of nicotine dependence
CPT/HCPCS: 95810

== ENCOUNTER → 2024-01-26 | Outpatient (CLI) | payer MEDICARE ==
--- NOTE | 2024-01-26 16:36 | US ---
EXAMINATION TYPE: US kidneys/renal and bladder DATE OF EXAM: 01/26/2024 COMPARISON: 11/01/2020 CLINICAL INDICATION: Female, 58 years old with history of N39.46 MIXED INCONTINENCE; Left lower pelvi c pain. Hx renal cyst. EXAM MEASUREMENTS: Right Kidney: 10.0 x 4.1 x 4.0 cm Left Kidney: 9.5 x 4.3 x 3.9 cm Right Kidney: Upper mid cystic cluster= 2.1 x 2.0 x 1.6 cm Left Kidney: No hydronephrosis or masses seen, limited due to overlying bowel Bladder: distended, anechoic Bilateral Jets not seen There is no evidence for hydronephrosis at this point in time. No nephrolithiasis is seen. No sona s are identified. The urinary bladder is anechoic. Bilateral ureteral jets are seen. IMPRESSION: 1. No evidence for obstructive uropathy. 2. Cholelithiasis. 3. Simple appearing right renal cyst.
--- NOTE | 2024-01-26 16:43 | US ---
EXAMINATION TYPE: US carotid duplex BILAT DATE OF EXAM: 01/26/2024 COMPARISON: US 2018 CLINICAL INDICATION: Female, 58 years old with history of N39.46 MIXED INCONTINENCE; HTN on meds. No history of TIA/stroke. TECHNIQUE: Carotid duplex ultrasound examination. Indirect Doppler criteria was utilized. FINDINGS: EXAM MEASUREMENTS: RIGHT: Peak Systolic Velocity (PSV) cm/sec ----- Right CCA: 114.0 ----- Right ICA: 99.2 ----- Right ECA: 73.0 ICA/CCA ratio: 0.9 RIGHT: End Diastole cm/sec ----- Right CCA: 26.2 ----- Right ICA: 23.8 ----- Right ECA: 8.0 LEFT: Peak Systolic Velocity (PSV) cm/sec ----- Left CCA: 108.0 ----- Left ICA: 134.0 ----- Left ECA: 68.3 ICA/CCA ratio: 0.8 LEFT: End Diastole cm/sec ----- Left CCA: 25.6 ----- Left ICA: 27.2 ----- Left ECA: 0.0 VERTEBRALS (direction of flow): Right Vertebral: Antegrade Left Vertebral: Antegrade Rhythm: Normal DRILLING FIELD PROFESSIONAL NOTES: No plaque or wall thickening. No significant stenosis. IMPRESSION: 1. 50-69% stenosis of the left carotid bifurcation by peak systolic velocity. 2. Less than 50% stenosis of the right carotid bifurcation. Criteria for Assigning % of Stenosis / Diameter reduction (Estimation based on the indirect measurements of the internal carotid artery velocities (ICA PSV). 1. Normal (no stenosis)=ICA PSV < 125 cm/s: ratio < 2.0: ICA EDV<40 cm/s. 2. Less than 50% stenosis=ICA PSV < 125 cm/s: ratio < 2.0: ICA EDV<40 cm/s. 3. 50 to 69% stenosis=ICA PSV of 125 to 230 cm/s: ration 2.0 ? 4.0: ICA EDV 40-100 cm/s. 4. Greater than 70% stenosis to near occlusion= ICA PSV > 230 cm/s: ratio > 4.0: ICA EDV > 100 cm/s. 5. Near occlusion= ICA PSV velocities may be low or undetectable: variable ratio and ICA EDV. 6. Total occlusion=unable to detect flow.
--- NOTE | 2024-01-26 16:45 | XR ---
EXAMINATION TYPE: XR abdomen 1V DATE OF EXAM: 01/26/2024 4:33 PM CLINICAL INDICATION:Female, 58 years old with history of K59.00 CONSTIPATION; [facility] COMPARISON: None. TECHNIQUE: One radiographic view of the abdomen was obtained. FINDINGS: Moderate amount stool throughout the colon. The bowel gas pattern is nonspecific without di lated loops of small or large bowel. There is no evidence for organomegaly or pneumoperitoneum. The osseous structures are intact. No abnormal calcifications are present. Fecal material and gas are de monstrated throughout the colon and rectum. Left pelvis fixation hardware appears intact. Mild multi level degeneration changes of the spine. IMPRESSION: Moderate amount of stool throughout the colon, otherwise Nonspecific bowel gas pattern without radiog raphic evidence for acute process.
== END | disposition home or self-care (01) ==
LOC: RADUSWWP 15:30
PROVIDERS: ATTEND Family Medicine
DX: K80.20 Calculus of gallbladder without cholecystitis without obstruction (principal); N28.1 Cyst of kidney, acquired; I65.23 Occlusion and stenosis of bilateral carotid arteries; N39.46 Mixed incontinence; K59.00 Constipation, unspecified; I10 Essential (primary) hypertension; R42 Dizziness and giddiness
CPT/HCPCS: 74018; 76770; 93880

== ENCOUNTER → 2024-01-26 | Outpatient (CLI) | payer MEDICARE | END | disposition home or self-care (01) | LOC: RADUSWWP 15:41 | PROVIDERS: ATTEND Nurse Practitioner Family | DX: Z53.9 Procedure and treatment not carried out, unspecified reason (principal) ==

== ENCOUNTER → 2024-02-06 | Outpatient (CLI) | payer MEDICARE ==
--- NOTE | 2024-02-14 09:20 | MR ---
EXAMINATION TYPE: MR brain wo con DATE OF EXAM: 02/06/2024 12:05 PM CLINICAL INDICATION:Female, 58 years old with history of G44.899 OTHER HEADACHE SYNDROME; PH[facility], Migrai jb COMPARISON: None. TECHNIQUE: Multi planar, multi sequence imaging was performed through the brain including: T1, T2, In version recovery, Diffusion weighted imaging, and gradient echo imaging. No gadolinium was given. FINDINGS: The jack-white junctions, ventricular system, basal cisterns appear unremarkable. . Midline structu res show no abnormality. Diffusion-weighted imaging shows no evidence of restricted diffusion. The shi sceptibility weighted images do not reveal any evidence for micro-hemorrhage. The bone marrow signal is within normal limits. Paranasal sinuses and mastoid air cells: No significant paranasal sinus disease. Visualized orbits: Orbital contents are intact. IMPRESSION: 1. No evidence of intracranial mass or acute/subacute infarct.
== END | disposition home or self-care (01) ==
LOC: RADMRIMAIN 10:19
PROVIDERS: ATTEND Nurse Practitioner Family
DX: G44.89 Other headache syndrome (principal); G43.909 Migraine, unspecified, not intractable, without status migrainosus
CPT/HCPCS: 70551

== ENCOUNTER → 2024-02-26 | Outpatient (CLI) | payer MEDICARE ==
[2024-02-26 14:11] LABS: Basophils # (A) 0.08 X 10*3/uL (0.00-0.10); Basophils % (A) 0.9 %; Eosinophils # (A) 0.24 X 10*3/uL (0.04-0.35); Eosinophils % (A) 2.7 %; HCT 40.5 % (37.2-46.3); HGB 13.3 g/dL (12.0-15.0); Lymphocytes # (A) 3.37 X 10*3/uL (0.90-5.00); Lymphocytes % (A) 37.9 %; MCH 29.2 pg (27.0-32.0); MCHC 32.8 g/dL (32.0-37.0); MCV 88.8 FL (80.0-97.0); Mean Platelet Volume 10.3 FL (9.5-12.2); Monocytes # (A) 0.48 X 10*3/uL (0.20-1.00); Monocytes % (A) 5.4 %; NRBC Per 100 WBC 0 X 10*3/uL (0.00-0.01); Neutrophils # (A) 4.69 X 10*3/uL (1.80-7.70); Neutrophils % (A) 52.8 %; Platelet Count 367 X 10*3/uL (140-440); RBC 4.56 X 10*6/uL (4.10-5.20); RDW 13.6 % (11.5-14.5); WBC 8.89 X 10*3/uL (4.50-10.00)
[2024-02-26 14:46] LABS: ALT 16 U/L (8-44); AST 12 U/L (13-35); Albumin 4.5 g/dL (3.8-4.9); Albumin/Globulin Ratio 2.25 Ratio (1.60-3.17); Alkaline Phosphatase 59 U/L (41-126); Blood Urea Nitrogen 14.3 mg/dL (9.0-27.0); Calcium 9.8 mg/dL (8.7-10.3); Carbon Dioxide 23.4 mmol/L (21.6-31.8); Chloride 106 mmol/L (96-109); Glucose 106 mg/dL (70-110); Potassium 3.3 mmol/L (3.5-5.5); Sodium 145 mmol/L (135-145); Total Bilirubin 0.5 mg/dL (0.3-1.2); Total Protein 6.5 g/dL (6.2-8.2)
[2024-02-26 15:18] LABS: Vitamin B12 >3600.0 pg/mL (200.0-944.0)
== END | disposition home or self-care (01) ==
LOC: LABWHC1 10:22
PROVIDERS: ATTEND Family Medicine
DX: R53.83 Other fatigue (principal)
CPT/HCPCS: 36415; 80053; 82306; 82607; 82746; 84443; 85025

== ENCOUNTER 2024-03-25 11:37 | Emergency (ER) | payer MEDICARE ==
[2024-03-25 11:59] VITALS: RESP 18; TEMP 97.9
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
[2024-03-25] MEDS: FLUCONAZOLE 150 MG TAB PO STA (13:33)
[2024-03-25] MEDS: MORPHINE SULFATE 2 MG/ML SYRINGE IM STA (13:34)
[2024-03-25 13:43] LABS: Appearance,Urine Clear (Clear); Bilirubin,Urine Negative (Negative); Blood,Urine Trace (Negative); Color,Urine Yellow; Glucose,Urine (UA) Negative (Negative); Ketones,Urine Negative (Negative); Leukocyte Esterase,Urine Moderate (Negative); Mucus,Urine Many /hpf; Nitrite,Urine Negative (Negative); Protein,Urine Trace (Negative); RBC,Urine 5 /hpf (0-5); Specific Gravity,Urine 1.031 (1.001-1.035); Squamous Epithelial Cell,Urine 3 /hpf (0-4); WBC,Urine 1 /hpf (0-5)
[2024-03-25] MEDS: cefTRIAXone 1,000 MG VIAL (IM USE) IM STA (14:13)
[2024-03-25] MEDS: ACET/COD 300 MG/30 MG STARTER PACK 6 TAB BTL PO STA (14:14)
[2024-03-25] MEDS: metroNIDAZOLE 500 MG TAB PO STA (14:14)
[2024-03-25 14:25] VITALS: BP 114/76; PULSE 66
[2024-03-26 12:51] LABS: C. trachomatis,PCR Negative (Negative)
[2024-03-26 13:04] LABS: N. gonorrhoeae,PCR Negative (Negative)
== END 2024-03-25 14:24 | disposition home or self-care (01) ==
LOC: EC 11:37
DX: N90.89 Other specified noninflammatory disorders of vulva and perineum (principal); Z88.6 Allergy status to analgesic agent; Z91.018 Allergy to other foods; Z91.041 Radiographic dye allergy status; Z88.8 Allergy status to other drugs, medicaments and biological substances; Z90.710 Acquired absence of both cervix and uterus
CPT/HCPCS: 81001; 87491; 87591; 99283; 96372 ×2; J0696; J2270

== ENCOUNTER 2024-04-03 17:55 | Emergency (ER) | payer MEDICARE ==
[2024-04-03 18:22] VITALS: TEMP 97.7
--- NOTE | 2024-04-03 18:24 | ED ---
General Adult HPI - General Source: patient, RN notes reviewed Mode of arrival: ambulatory Limitations: no limitations <Ace Hills - Last Filed: 04/03/24 18:23> <Freya Díaz - Last Filed: 04/04/24 12:37> - General Stated complaint: lower abd pain Time Seen by Provider: 04/03/24 18:17 - History of Present Illness Initial comments: Quicknote 58-year-old female presenting with a chief complaint of abdominal pain. Patient reports for the past week has had some lower abdominal pain radiating to her back. Notes some associated nausea with this. Reports that she was seen here prior was told possibly had a UTI and was given antibiotics. Since then reports continued symptoms of pain prompting presentation to the ED for further ev aluation. (Ace Hills) This is a 58-year-old female who presents emergency department chief complaint of abdominal pain of her lower abdomen that radiates into her back. Patient endorses dysuria. She denies hematuria, increase in frequency or urgency, vaginal discharge, vaginal burning or pain. She endorses mild nausea. (Freya Díaz) - Related Data Home Medications Medication Instructions Recorded Confirmed Cyclobenzaprine [Flexeril] 10 mg PO QID PRN 07/22/19 08/06/19 HYDROcodone/APAP 10-325MG [[employer] 1 tab PO Q4HR PRN 07/22/19 08/06/19 10-325] diazePAM [Valium] 10 mg PO DAILY PRN 07/22/19 08/06/19 Medroxyprogesterone Acetate 150 mg IM Q90D 07/30/19 08/06/19 [Depo-Provera] Omeprazole [PriLOSEC] 20 mg PO AC-BRKFST 08/09/19 08/09/19 Sulfamethoxazole/Trimethoprim 1 each PO BID 08/09/19 08/09/19 [Bactrim DS 800-160 mg] predniSONE 0 mg PO DIRECTED 08/09/19 08/09/19 raNITIdine HCL [Zantac] 150 mg PO DIRECTED 08/09/19 08/09/19 Previous Rx's Medication Instructions Recorded Doxycycline [Vibramycin] 100 mg PO BID 7 Days #14 capsule 03/25/24 Allergies Allergy/AdvReac Type Severity Reaction Status Date / Time aspirin Allergy Anaphylaxis Verified 04/03/24 18:22 willis Allergy Anaphylaxis Verified 04/03/24 18:22 willis flavor Allergy Anaphylaxis Verified 04/03/24 18:22 Iodinated Contrast Media Allergy Dyspnea Verified 04/03/24 18:22 antidepressants Allergy "blacked Uncoded 04/03/24 18:22 out" Review of Systems ROS Other: All systems not noted in ROS Statement are negative. <Ace Hills - Last Filed: 04/03/24 18:23> ROS Other: All systems not noted in ROS Statement are negative. <Freya Díaz - Last Filed: 04/04/24 12:37> ROS Statement: Those systems with pertinent positive or pertinent negative responses have been documented in the HPI. Past Medical History Past Medical History: Chest Pain / Angina Additional Past Medical History / Comment(s): "mass on the heart" History of Any Multi-Drug Resistant Organisms: None Reported Past Surgical History: Ear Surgery, Hysterectomy, Tubal Ligation Additional Past Surgical History / Comment(s): D&C's Past Anesthesia/Blood Transfusion Reactions: No Reported Reaction Additional Past Anesthesia/Blood Transfusion Reaction / Comment(s): no blood transfusion Past Psychological History: Anxiety Past Alcohol Use History: Occasional Past Drug Use History: None Reported - Past Family History Mother Family Medical History: Cancer Father Family Medical History: No Reported History <JeanaAce - Last Filed: 04/03/24 18:23> General Exam Limitations: no limitations <JeanaAce - Last Filed: 04/03/24 18:23> General appearance: alert, in no apparent distress Head exam: Present: atraumatic, normocephalic, normal inspection Eye exam: Present: normal appearance, PERRL, EOMI. Absent: scleral icterus, conjunctival injection, periorbital swelling ENT exam: Present: normal exam, mucous membranes moist Neck exam: Present: normal inspection. Absent: tenderness, meningismus, lymphadenopathy Respiratory exam: Present: normal lung sounds bilaterally. Absent: respiratory distress, wheezes, rales, rhonchi, stridor Cardiovascular Exam: Present: regular rate, normal rhythm, normal heart sounds. Absent: systolic murmur, diastolic murmur, rubs, gallop, clicks GI/Abdominal exam: Present: soft, normal bowel sounds. Absent: distended, tenderness, guarding, rebound, rigid Extremities exam: Present: normal inspection, full ROM, normal capillary refill. Absent: tenderness, pedal edema, joint swelling, calf tenderness Back exam: Present: normal inspection Neurological exam: Present: alert, oriented X3, CN II-XII intact Psychiatric exam: Present: normal affect, normal mood Skin exam: Present: warm, dry, intact, normal color. Absent: rash <Freya Díaz - Last Filed: 04/04/24 12:37> Course Vital Signs 04/03/24 04/03/24 18:13 21:32 Temperature 97.7 F Pulse Rate 71 75 Respiratory 22 16 Rate Blood Pressure 151/85 100/55 O2 Sat by Pulse 99 100 Oximetry Medical Decision Making - Lab Data Result diagrams: 04/03/24 19:45 04/03/24 19:45 <Freya Díaz - Last Filed: 04/04/24 12:37> - Medical Decision Making Was pt. sent in by a medical professional or institution ([facility], FAMILY MEDICINE PHYSICIAN, urgent care, hospital, or [facility]...) When possible be specific @ -No Did you speak to anyone other than the patient for history (EMS, parent, family, police, friend...)? What history was obtained from this source @ -No Did you review nursing and triage notes (agree or disagree)? Why? @ -I reviewed and agree with nursing and triage notes Were old charts reviewed (outside hosp., previous admission, EMS record, old EKG, old radiological studies, urgent care reports/EKG's, [facility] records)? Report findings @ -No old charts were reviewed Differential Diagnosis (chest pain, altered mental status, abdominal pain women, abdominal pain men, vaginal bleeding, weakness, fever, dyspnea, syncope, headache, dizziness, GI bleed, back pain, seizure, CVA, palpatations, mental health, musculoskeletal)? @ -Differential Abdominal Pain Women: Appendicitis, Cholecystitis, diverticulosis, ischemic bowel, pancreatitis, hepatitis, UTI, gastroenteritis, AAA, incarcerated hernia, bowel obstruction, constipation, inflammatory bowel, hepatitis, peptic ulcer disease, splenic infarction, perforated viscus, vulvitis, ovarian torsion, PID, kidney stone, placenta abruption, this is not meant to be an all-inclusive list EKG interpreted by me (3pts min.). @ -None X-rays interpreted by me (1pt min.). @ -None done CT interpreted by me (1pt min.). @ -CT of the abdomen pelvis without contrast no acute process identified, 2.1 cm upper right pole kidney cyst U/S interpreted by me (1pt. min.). @ -None done What testing was considered but not performed or refused? (CT, X-rays, U/S, labs)? Why? @ -None What meds were considered but not given or refused? Why? @ -None Did you discuss the management of the patient with other professionals (professionals i.e. , PA, FAMILY MEDICINE PHYSICIAN, lab, RT, psych nurse, social welfare administrator, tooling supervisor, teacher, quality officer, supportive employment case manager)? Give summary @ -No Was smoking cessation discussed for >3mins.? @ -No Was critical care preformed (if so, how long)? @ -No Were there social determinants of health that impacted care today? How? (Homelessness, low income, unemployed, alcoholism, drug addiction, transport ation, low edu. Level, literacy, decrease access to med. care, correction, rehab)? @ -No Was there de-escalation of care discussed even if they declined (Discuss DNR or withdrawal of care, Hospice)? DNR status @ -No What co-morbidities impacted this encounter? (DM, HTN, Smoking, COPD, CAD, Cancer, CVA, ARF, Chemo, Hep., AIDS, mental health diagnosis, sleep apnea, morbid obesity)? @ -None Was patient admitted / discharged? Hospital course, mention meds given and route, prescriptions, significant lab abnormalities, going to OR and other pertinent info. @ -Discharged. 58-year-old female with abdominal pain. Patient was originally evaluated as a quick note where labs were ordered in addition to CT of the abdomen. On examination of the patient there are no signs of abdominal tenderness, nonsurgical abdomen. CBC unremarkable, CMP reveals mildly elevated BUN at 24. Urinalysis no signs of infection. Reevaluation of the patient after administration of Zofran and Tylenol her symptoms have improved. Patient is stable for discharge with unspecified abdominal pain. Recommend that she f ollows up with her primary care provider for further evaluation. All questions answered at bedside and strict return prior discussed with the patient and she is verbalized understanding. Case discussed with Dr. Carlson Undiagnosed new problem with uncertain prognosis? @ -No Drug Therapy requiring intensive monitoring for toxicity (Heparin, Nitro, Insulin, Cardizem)? @ -No Were any procedures done? @ -No Diagnosis/symptom? @ -unspecified abdominal pain Acute, or Chronic, or Acute on Chronic? @ -acute Uncomplicated (without systemic symptoms) or Complicated (systemic symptoms)? @ -uncomplicated Side effects of treatment? @ -No Exacerbation, Progression, or Severe Exacerbation? @ -No Poses a threat to life or bodily function? How? (Chest pain, [place], CA, pneumonia, PE, COPD, DKA, ARF, appy, cholecystitis, CVA, Diverticulitis, Homicidal, Suicidal, threat to staff... and all critical care pts) @ -No (Freya Díaz) - Lab Data Lab Results 04/03/24 04/03/24 04/03/24 Range/Units 19:45 19:45 19:45 WBC 11.0 H (3.8-10.6) k/uL RBC 4.57 (3.80-5.40) m/uL Hgb 13.2 (11.4-16.0) gm/dL Hct 41.9 (34.0-46.0) % MCV 91.5 (80.0-100.0) fL MCH 28.8 (25.0-35.0) pg MCHC 31.4 (31.0-37.0) g/dL RDW 13.8 (11.5-15.5) % Plt Count 305 (150-450) k/uL MPV 7.9 Neutrophils % 51 % Lymphocytes % 39 % Monocytes % 5 % Eosinophils % 3 % Basophils % 1 % Neutrophils # 5.7 (1.3-7.7) k/uL Lymphocytes # 4.2 (1.0-4.8) k/uL Monocytes # 0.5 (0-1.0) k/uL Eosinophils # 0.4 (0-0.7) k/uL Basophils # 0.1 (0-0.2) k/uL Sodium 141 (137-145) mmol/L Potassium 4.2 (3.5-5.1) mmol/L Chloride 111 H (98-107) mmol/L Carbon Dioxide 23 (22-30) mmol/L Anion Gap 7 mmol/L BUN 24 H (7-17) mg/dL Creatinine 0.93 (0.52-1.04) mg/dL Est GFR (CKD-EPI)AfAm 80 (>60 ml/min/1.73 sqM) Est GFR (CKD-EPI)NonAf 69 (>60 ml/min/1.73 sqM) Glucose 94 (74-99) mg/dL Calcium 9.6 (8.4-10.2) mg/dL Total Bilirubin 0.4 (0.2-1.3) mg/dL AST 19 (14-36) U/L ALT 19 (4-34) U/L Alkaline Phosphatase 59 (38-126) U/L Total Protein 6.1 L (6.3-8.2) g/dL Albumin 3.9 (3.5-5.0) g/dL Urine Color Yellow Urine Appearance Clear (Clear) Urine pH 5.5 (5.0-8.0) Ur Specific [place] 1.028 (1.001-1.035) Urine Protein Negative (Negative) Urine Glucose (UA) Negative (Negative) Urine Ketones Negative (Negative) Urine Blood Negative (Negative) Urine Nitrite Negative (Negative) Urine Bilirubin Negative (Negative) Urine Urobilinogen <2.0 (<2.0) mg/dL Ur Leukocyte Esterase Negative (Negative) Disposition <Ace Hills - Last Filed: 04/03/24 18:23> Is patient prescribed a controlled substance at d/c from ED?: No Time of Disposition: 21:16 <Freya Díaz - Last Filed: 04/04/24 12:37> Clinical Impression: Abdominal pain Disposition: HOME SELF-CARE Condition: Good Instructions (If sedation given, give patient instructions): Abdominal Pain (ED) Additional Instructions: Return to the emergency department if symptoms worsen or not improve. Increase oral rehydration. Referrals: Tommy Vo MD [Primary Care Provider] - 1-2 days
--- NOTE | 2024-04-03 19:09 | CT ---
EXAMINATION TYPE: CT abdomen pelvis wo con DATE OF EXAM: 04/03/2024 COMPARISON: None HISTORY: lower abdominal pain/flank pain. nausea CT DLP: 424.6 mGycm Examination of the solid and hollow viscera is limited given the lack of contrast. FINDINGS: LUNG BASES: No evidence for nodule. No evidence for infiltrate. LIVER/GB: The gallbladder is unremarkable. No space-occupying hepatic lesion. PANCREAS: No pancreatic mass identified. No inflammatory process seen. SPLEEN: No evidence for splenomegaly. No intrasplenic lesions seen. ADRENALS: No adrenal nodules identified. No evidence for thickening. KIDNEYS: Hypoattenuating lesion upper pole right kidney measuring 2.1 cm likely reflects an cyst and can be confirmed with ultrasound. No nephrolithiasis. No hydronephrosis. BOWEL: Appendix has a normal appearance. No evidence of bowel obstruction. No inflammatory process. Lymph nodes: No evidence for adenopathy greater than 1 cm. Abdominal aorta: Atheromatous changes seen. No evidence for aneurysm. Genital organs: Hysterectomy changes. No evidence for vaginal cuff mass or adnexal mass. Other: Postoperative changes left hemipelvis. Severe degenerative changes L5-S1. IMPRESSION: NO ACUTE PROCESS SEEN TO ACCOUNT FOR THE PATIENT'S SYMPTOMS.
[2024-04-03 20:11] LABS: Basophils # (A) 0.1 k/uL (0-0.2); Basophils % (A) 1 %; Eosinophils # (A) 0.4 k/uL (0-0.7); Eosinophils % (A) 3 %; HCT 41.9 % (34.0-46.0); HGB 13.2 gm/dL (11.4-16.0); Lymphocytes # (A) 4.2 k/uL (1.0-4.8); Lymphocytes % (A) 39 %; MCH 28.8 pg (25.0-35.0); MCHC 31.4 g/dL (31.0-37.0); MCV 91.5 fL (80.0-100.0); Mean Platelet Volume 7.9; Monocytes # (A) 0.5 k/uL (0-1.0); Monocytes % (A) 5 %; Neutrophils # (A) 5.7 k/uL (1.3-7.7); Neutrophils % (A) 51 %; Platelet Count 305 k/uL (150-450); RBC 4.57 m/uL (3.80-5.40); RDW 13.8 % (11.5-15.5)
[2024-04-03 20:22] LABS: ALT 19 U/L (4-34); AST 19 U/L (14-36); African American GFR (CKD) 80 (>60 ml/min/1.73 sqM); Albumin 3.9 g/dL (3.5-5.0); Alkaline Phosphatase 59 U/L (38-126); Anion Gap 7 mmol/L; Blood Urea Nitrogen 24 mg/dL (7-17); Calcium 9.6 mg/dL (8.4-10.2); Carbon Dioxide 23 mmol/L (22-30); Chloride 111 mmol/L (98-107); Glucose 94 mg/dL (74-99); Non-African American GFR(CKD) 69 (>60 ml/min/1.73 sqM); Potassium 4.2 mmol/L (3.5-5.1); Sodium 141 mmol/L (137-145); Total Bilirubin 0.4 mg/dL (0.2-1.3); Total Protein 6.1 g/dL (6.3-8.2)
[2024-04-03 20:31] LABS: Appearance,Urine Clear (Clear); Bilirubin,Urine Negative (Negative); Blood,Urine Negative (Negative); Color,Urine Yellow; Glucose,Urine (UA) Negative (Negative); Ketones,Urine Negative (Negative); Leukocyte Esterase,Urine Negative (Negative); Nitrite,Urine Negative (Negative); PH, Urine 5.5 (5.0-8.0); Protein,Urine Negative (Negative); Specific Gravity,Urine 1.028 (1.001-1.035); Urobilinogen,Urine <2.0 mg/dL (<2.0)
[2024-04-03] MEDS: ONDANSETRON ODT 4 MG TAB PO STA (21:02)
[2024-04-03] MEDS: ACETAMINOPHEN TAB 500 MG TAB PO STA (21:03)
[2024-04-03 21:38] VITALS: BP 100/55; PULSE 75; RESP 16
== END 2024-04-03 21:37 | disposition home or self-care (01) ==
LOC: EC 17:55
DX: N28.1 Cyst of kidney, acquired (principal); R79.9 Abnormal finding of blood chemistry, unspecified; Z88.6 Allergy status to analgesic agent; Z88.8 Allergy status to other drugs, medicaments and biological substances; Z91.018 Allergy to other foods; Z91.041 Radiographic dye allergy status
CPT/HCPCS: 36415; 74176; 80053; 81003; 85025; 99284

== ENCOUNTER 2024-04-28 14:34 | Emergency (ER) | payer MEDICARE ==
--- NOTE | 2024-04-28 14:44 | ED ---
General Adult HPI - General Source: patient, EMS, RN notes reviewed Mode of arrival: EMS Limitations: no limitations <Joshua Hawk - Last Filed: 04/28/24 14:43> <Elena Sims - Last Filed: 04/28/24 19:08> - General Stated complaint: near syncope Time Seen by Provider: 04/28/24 14:36 - History of Present Illness Initial comments: Quick [id number] female presents emergency department via EMS chief complaint of near syncopal episode, sink will episode. Patient states that she did not feel well in her apartment states it was hot felt that it was related to her not having air conditioning. She went to the [employer] store had another episode in which bystanders caught her. She had no fall, no head injury. (Joshua Hawk) - Related Data Home Medications Medication Instructions Recorded Confirmed Cyclobenzaprine [Flexeril] 10 mg PO QID PRN 07/22/19 08/06/19 HYDROcodone/APAP 10-325MG [[place] 1 tab PO Q4HR PRN 07/22/19 08/06/19 10-325] diazePAM [Valium] 10 mg PO DAILY PRN 07/22/19 08/06/19 Medroxyprogesterone Acetate 150 mg IM Q90D 07/30/19 08/06/19 [Depo-Provera] Omeprazole [PriLOSEC] 20 mg PO AC-BRKFST 08/09/19 08/09/19 Sulfamethoxazole/Trimethoprim 1 each PO BID 08/09/19 08/09/19 [Bactrim DS 800-160 mg] predniSONE 0 mg PO DIRECTED 08/09/19 08/09/19 raNITIdine HCL [Zantac] 150 mg PO DIRECTED 08/09/19 08/09/19 Previous Rx's Medication Instructions Recorded Doxycycline [Vibramycin] 100 mg PO BID 7 Days #14 capsule 03/25/24 Allergies Allergy/AdvReac Type Severity Reaction Status Date / Time aspirin Allergy Anaphylaxis Verified 04/28/24 14:47 willis Allergy Anaphylaxis Verified 04/28/24 14:47 willis flavor Allergy Anaphylaxis Verified 04/28/24 14:47 Iodinated Contrast Media Allergy Dyspnea Verified 04/28/24 14:47 antidepressants Allergy "blacked Uncoded 04/28/24 14:47 out" Review of Systems ROS Other: All systems not noted in ROS Statement are negative. <Joshua Hawk - Last Filed: 04/28/24 14:43> ROS Other: All systems not noted in ROS Statement are negative. <Elena Sims - Last Filed: 04/28/24 19:08> ROS Statement: Those systems with pertinent positive or pertinent negative responses have been documented in the HPI. Past Medical History Past Medical History: Chest Pain / Angina Additional Past Medical History / Comment(s): "mass on the heart" History of Any Multi-Drug Resistant Organisms: None Reported Past Surgical History: Ear Surgery, Hysterectomy, Tubal Ligation Additional Past Surgical History / Comment(s): D&C's Past Anesthesia/Blood Transfusion Reactions: No Reported Reaction Additional Past Anesthesia/Blood Transfusion Reaction / Comment(s): no blood transfusion Past Psychological History: Anxiety Past Alcohol Use History: Occasional Past Drug Use History: None Reported - Past Family History Mother Family Medical History: Cancer Father Family Medical History: No Reported History <Joshua Hawk - Last Filed: 04/28/24 14:43> General Exam <Joshua Hawk - Last Filed: 04/28/24 14:43> - General Exam Comments Initial Comments: Visual Physical Exam Vital signs reviewed General: Well-appearing, nontoxic, no acute distress. Head: Normocephalic, atraumatic Eyes: PERRLA, EOMI ENT: Airway patent Chest: Nonlabored breathing Skin: No visual rash, normal skin tone Neuro: Alert and oriented 3 Musculoskeletal: No gross abnormalities (Joshua Hawk) Course Vital Signs 04/28/24 04/28/24 14:45 16:45 Temperature 98.9 F Pulse Rate 68 62 Respiratory 20 18 Rate Blood Pressure 108/61 100/64 O2 Sat by Pulse 100 98 Oximetry Medical Decision Making <Joshua Hawk - Last Filed: 04/28/24 14:43> - Lab Data Result diagrams: 04/28/24 15:10 04/28/24 15:10 <Elena Sims - Last Filed: 04/28/24 19:08> - Medical Decision Making I completed the quick note portion of this chart signed Joshua Hawk PA-C (Joshua Hawk) Was pt. sent in by a medical professional or institution (Dr., PA, RN CORRECTIONAL, urgent care, hospital, or prison...) When possible be specific @ -[No] Did you speak to anyone other than the patient for history (EMS, parent, family, police, friend...)? What history was obtained from this source @ -[No] Did you review nursing and triage notes (agree or disagree)? Why? @ -[I reviewed and agree with nursing and triage notes] Were old charts reviewed (outside hosp., previous admission, EMS record, old EKG, old radiological studies, urgent care reports/EKG's, prison records)? Report findings @ -[No old charts were reviewed] Differential Diagnosis (chest pain, altered mental status, abdominal pain women, abdominal pain men, vaginal bleeding, weakness, fever, dyspnea, syncope, headache, dizziness, GI bleed, back pain, seizure, CVA, palpatations, mental health, musculoskeletal)? @ -[Differential Dizziness: Benign paroxysmal positional Vertigo, Menieres disease, otitis media, acoustic neuroma, vertebrobasilar insufficiency, cerebellar stroke, encephalitis, hypovolemic, arrhythmia, coronary artery syndrome, anemia, this is not meant to be an all-inclusive list ] EKG interpreted by me (3pts min.). @ -EKG at 1509 shows sinus bradycardia rate 59, DC 143, QRS 91, QTQTc [id number] X-rays interpreted by me (1pt min.). @ -[None done] CT interpreted by me (1pt min.). @ -[None done] U/S interpreted by me (1pt. min.). @ -[None done] What testing was considered but not performed or refused? (CT, X-rays, U/S, labs)? Why? @ -[None] What meds were considered but not given or refused? Why? @ -[None] Did you discuss the management of the patient with other professionals (professionals i.e. KAY Fuentes, RN CORRECTIONAL, lab, RT, psych nurse, adoption social worker, windows technical specialist, teacher, fourth officer, behavioral health case manager)? Give summary @ -[No] Was smoking cessation discussed for >3mins.? @ -[No] Was critical care preformed (if so, how long)? @ -[No] Were there social determinants of health that impacted care today? How? (Homelessness, low income, unemployed, alcoholism, drug addiction, transportation, low edu. Level, literacy, decrease access to med. care, custodial, rehab)? @ -[No] Was there de-escalation of care discussed even if they declined (Discuss DNR or withdrawal of care, Hospice)? DNR status @ -[No] What co-morbidities impacted this encounter? (DM, HTN, Smoking, COPD, CAD, Cancer, CVA, ARF, Chemo, Hep., AIDS, mental health diagnosis, sleep apnea, morbid obesity)? @ -[None] Was patient admitted / discharged? Hospital course, mention meds given and route, prescriptions, significant lab abnormalities, going to OR and other pertinent info. @ -[hospital course] Undiagnosed new problem with uncertain prognosis? @ -[No] Drug Therapy requiring intensive monitoring for toxicity (Heparin, Nitro, Insulin, Cardizem)? @ -[No] Were any procedures done? @ -[No] Diagnosis/symptom? @ -[default] Acute, or Chronic, or Acute on Chronic? @ -[default] Uncomplicated (without systemic symptoms) or Complicated (systemic symptoms)? @ -[default] Side effects of treatment? @ -[No] Exacerbation, Progression, or Severe Exacerbation? @ -[No] Poses a threat to life or bodily function? How? (Chest pain, USA, CA, pneumonia, PE, COPD, DKA, ARF, appy, cholecystitis, CVA, Diverticulitis, Homicidal, Suicidal, threat to staff... and all critical care pts) @ -[No] (Elena Sims) - Lab Data Lab Results 04/28/24 04/28/24 04/28/24 Range/Units 15:10 15:10 15:10 WBC 8.8 (3.8-10.6) k/uL RBC 4.05 (3.80-5.40) m/uL Hgb 12.3 (11.4-16.0) gm/dL Hct 36.1 (34.0-46.0) % MCV 89.1 (80.0-100.0) fL MCH 30.5 (25.0-35.0) pg MCHC 34.2 (31.0-37.0) g/dL RDW 13.5 (11.5-15.5) % Plt Count 258 (150-450) k/uL MPV 8.2 Neutrophils % 53 % Lymphocytes % 37 % Monocytes % 5 % Eosinophils % 2 % Basophils % 1 % Neutrophils # 4.7 (1.3-7.7) k/uL Lymphocytes # 3.3 (1.0-4.8) k/uL Monocytes # 0.4 (0-1.0) k/uL Eosinophils # 0.2 (0-0.7) k/uL Basophils # 0.1 (0-0.2) k/uL PT 10.7 (10.0-12.5) sec INR 1.0 (<1.2) APTT 24.3 (22.0-30.0) sec Sodium 143 (137-145) mmol/L Potassium 2.9 L (3.5-5.1) mmol/L Chloride 109 H (98-107) mmol/L Carbon Dioxide 23 (22-30) mmol/L Anion Gap 11 mmol/L BUN 21 H (7-17) mg/dL Creatinine 1.07 H (0.52-1.04) mg/dL Est GFR (CKD-EPI)AfAm 68 (>60 ml/min/1.73 sqM) Est GFR (CKD-EPI)NonAf 59 (>60 ml/min/1.73 sqM) Glucose 90 (74-99) mg/dL Calcium 9.4 (8.4-10.2) mg/dL Magnesium 2.1 (1.6-2.3) mg/dL Total Bilirubin 0.5 (0.2-1.3) mg/dL AST 18 (14-36) U/L ALT 16 (4-34) U/L Alkaline Phosphatase 46 (38-126) U/L Troponin I (0.000-0.034) ng/mL Total Protein 6.1 L (6.3-8.2) g/dL Albumin 3.9 (3.5-5.0) g/dL 04/28/24 Range/Units 15:10 WBC (3.8-10.6) k/uL RBC (3.80-5.40) m/uL Hgb (11.4-16.0) gm/dL Hct (34.0-46.0) % MCV (80.0-100.0) fL MCH (25.0-35.0) pg MCHC (31.0-37.0) g/dL RDW (11.5-15.5) % Plt Count (150-450) k/uL MPV Neutrophils % % Lymphocytes % % Monocytes % % Eosinophils % % Basophils % % Neutrophils # (1.3-7.7) k/uL Lymphocytes # (1.0-4.8) k/uL Monocytes # (0-1.0) k/uL Eosinophils # (0-0.7) k/uL Basophils # (0-0.2) k/uL PT (10.0-12.5) sec INR (<1.2) APTT (22.0-30.0) sec Sodium (137-145) mmol/L Potassium (3.5-5.1) mmol/L Chloride (98-107) mmol/L Carbon Dioxide (22-30) mmol/L Anion Gap mmol/L BUN (7-17) mg/dL Creatinine (0.52-1.04) mg/dL Est GFR (CKD-EPI)AfAm (>60 ml/min/1.73 sqM) Est GFR (CKD-EPI)NonAf (>60 ml/min/1.73 sqM) Glucose (74-99) mg/dL Calcium (8.4-10.2) mg/dL Magnesium (1.6-2.3) mg/dL Total Bilirubin (0.2-1.3) mg/dL AST (14-36) U/L ALT (4-34) U/L Alkaline Phosphatase (38-126) U/L Troponin I <0.012 (0.000-0.034) ng/mL Total Protein (6.3-8.2) g/dL Albumin (3.5-5.0) g/dL Disposition <Joshua Hawk - Last Filed: 04/28/24 14:43> Is patient prescribed a controlled substance at d/c from ED?: No <Elena Sims - Last Filed: 04/28/24 19:08> Clinical Impression: Lightheadedness, Hypokalemia Disposition: HOME SELF-CARE Condition: Stable Instructions (If sedation given, give patient instructions): Hypokalemia (ED) Additional Instructions: Please follow up with your primary care provider for potassium recheck. Return to the emergency department for new or worsening symptoms. Referrals: Tommy Vo MD [Primary Care Provider] - 1-2 days
[2024-04-28 15:31] LABS: ALT 16 U/L (4-34); AST 18 U/L (14-36); African American GFR (CKD) 68 (>60 ml/min/1.73 sqM); Albumin 3.9 g/dL (3.5-5.0); Alkaline Phosphatase 46 U/L (38-126); Anion Gap 11 mmol/L; Blood Urea Nitrogen 21 mg/dL (7-17); Calcium 9.4 mg/dL (8.4-10.2); Carbon Dioxide 23 mmol/L (22-30); Chloride 109 mmol/L (98-107); Glucose 90 mg/dL (74-99); Magnesium 2.1 mg/dL (1.6-2.3); Non-African American GFR(CKD) 59 (>60 ml/min/1.73 sqM); Potassium 2.9 mmol/L (3.5-5.1); Sodium 143 mmol/L (137-145); Total Bilirubin 0.5 mg/dL (0.2-1.3); Total Protein 6.1 g/dL (6.3-8.2)
[2024-04-28 15:39] LABS: Basophils # (A) 0.1 k/uL (0-0.2); Basophils % (A) 1 %; Eosinophils # (A) 0.2 k/uL (0-0.7); Eosinophils % (A) 2 %; HCT 36.1 % (34.0-46.0); HGB 12.3 gm/dL (11.4-16.0); Lymphocytes # (A) 3.3 k/uL (1.0-4.8); Lymphocytes % (A) 37 %; MCH 30.5 pg (25.0-35.0); MCHC 34.2 g/dL (31.0-37.0); MCV 89.1 fL (80.0-100.0); Mean Platelet Volume 8.2; Monocytes # (A) 0.4 k/uL (0-1.0); Monocytes % (A) 5 %; Neutrophils # (A) 4.7 k/uL (1.3-7.7); Neutrophils % (A) 53 %; Platelet Count 258 k/uL (150-450); RBC 4.05 m/uL (3.80-5.40); RDW 13.5 % (11.5-15.5); WBC 8.8 k/uL (3.8-10.6)
[2024-04-28 15:44] LABS: Partial Thromboplastin Time 24.3 sec (22.0-30.0); Prothrombin Time 10.7 sec (10.0-12.5)
[2024-04-28] MEDS: SODIUM CHLORIDE 0.9% 1,000 ML IV STA (16:52)
[2024-04-28] MEDS ORDERED: Potassium Replacement Protocol 1 EACH MISC MISCELLANE PRN (16:53)
[2024-04-28] MEDS: POTASSIUM CHLORIDE ER 20 MEQ TAB.ER PO SCH (17:32)
[2024-04-28] MEDS: SODIUM CHLORIDE 0.9% 1,000 ML IV ONE (17:33)
[2024-04-28] MEDS: POTASSIUM CHLORIDE 10 MEQ in WATER FOR INJECTION 1 100ML.BAG IVPB SCH (18:23)
[2024-04-28] MEDS: ACETAMINOPHEN TAB 500 MG TAB PO STA (20:22)
[2024-04-28 20:25] VITALS: PULSE 74
[2024-04-28 21:10] VITALS: BP 118/53; RESP 18; TEMP 98.4
== END 2024-04-28 21:11 | disposition home or self-care (01) ==
LOC: EC 14:34
DX: R42 Dizziness and giddiness (principal); E87.6 Hypokalemia; Z88.5 Allergy status to narcotic agent; Z91.018 Allergy to other foods; Z91.041 Radiographic dye allergy status; Z88.8 Allergy status to other drugs, medicaments and biological substances
CPT/HCPCS: 36415; 93005; 80053; 83735; 84484; 85025; 85610; 85730; 99285; 96365; 96366; 96361; J3480

== ENCOUNTER 2024-05-24 14:52 | Emergency (ER) | payer MEDICARE ==
[2024-05-24] MEDS ORDERED: MECLIZINE 12.5 MG TAB ONE (16:07)
[2024-05-24] MEDS ORDERED: METOCLOPRAMIDE 5 MG/ML 2 ML VIAL ONE (16:07)
[2024-05-24] MEDS ORDERED: SODIUM CHLORIDE 0.9% 1,000 ML BAG ONE (16:35)
== END 2024-05-24 20:10 | disposition home or self-care (01) ==
LOC: EC 14:52
CPT/HCPCS: 93005; 96361; 96374; 96375; 99284

== ENCOUNTER → 2025-01-13 | Outpatient (CLI) | payer MEDICARE ==
--- NOTE | 2025-01-13 16:24 | CT ---
EXAMINATION TYPE: CT brain wo con DATE OF EXAM: 01/13/2025 COMPARISON: None CLINICAL INDICATION: Female, 59 years old with history of R51.9 HEADACHE; PHH, c/o headache and dizzi ness CT DLP: 1606 mGycm Automated exposure control for dose reduction was used. Findings: The ventricles, basal cisterns and sulci over the convexities are within normal limits and there is n o mass effect or shift of midline structures. No abnormal density is seen throughout the brain parenchyma and there is no acute intra or extra-axia l hemorrhage. The posterior fossa including the brainstem, fourth ventricle and cerebellar pontine angles appear no rmal. Intraorbital contents appear normal and symmetric. There is mild chronic inflammatory change in the maxillary sinuses. There is deviation of the nasal s eptum to the left. The frontal sinuses are hypoplastic. The mastoid air cells and middle ear cavities are well aerated The calvarium is intact. IMPRESSION: 1. No acute bleed or mass effect. 2. Mild chronic inflammatory changes in the maxillary sinuses.. [facility], Workstation: BRIONNA 01/13/2025 4:22 PM
== END | disposition home or self-care (01) ==
LOC: RADCTMAIN 15:37
PROVIDERS: ATTEND Family Medicine
DX: J34.89 Other specified disorders of nose and nasal sinuses (principal); R51.9 Headache, unspecified
CPT/HCPCS: 70450